=== PATIENT | male | born 1965 ===

== ENCOUNTER 2023-02-03 08:09 | Outpatient (REF) | payer MEDICAID, SELFPAY ==
--- NOTE | ~2023-02-03 | US_ITS ---
EXAMINATION: US COMPLETE ABDOMEN WITH LIVER ELASTOGRAPHY CLINICAL INFORMATION: Hepatitis C. COMPARISON: None available. TECHNIQUE: Real-time imaging of the abdominal viscera. Noninvasive ultrasound liver fibrosis assessment is performed using Adan ElastPQ point quantification shear wave elastography (2D-SWE) with a C5-2 MHz transducer. Multiple elastography samples are obtained. FINDINGS: PANCREAS: Largely obscured by overlapping bowel gas. ABDOMINAL AORTA: The proximal segment is are normal in caliber. The mid and distal segments are obscured by overlapping bowel gas. INFERIOR VENA CAVA: Visualized portions are normal. LIVER: Normal. The liver demonstrates normal size, contour and echogenicity. No focal lesion or intrahepatic biliary duct dilatation. The right lobe measures 18.8 cm in length. The left lobe measures 12.4 cm in length. Portal flow is towards the liver (hepatopetal). Shear wave liver elastography median stiffness is 1.59 m/s (reference: normal median stiffness is 1.3 m/s or less). IQR/median stiffness to assess sampling precision is 0.15 (reference: good quality data set is IQR/median stiffness of 0.15 or less). GALLBLADDER: There is mild layering biliary sludge. The gallbladder is physiologically distended without evidence of stones, polyps, wall thickening or pericholecystic fluid. COMMON BILE DUCT: Normal in caliber measuring 0.8 cm in diameter. RIGHT KIDNEY: Normal. No hydronephrosis. No renal calculi or focal parenchymal lesions. The kidney measures 11.5 cm in maximum dimension. LEFT KIDNEY: Normal. No hydronephrosis. No renal calculi or focal parenchymal lesions. The kidney measures 11.0 cm in maximum dimension. SPLEEN: Normal. The spleen measures 11.4 cm in maximum dimension. FREE FLUID: None. US/US abdomen comp w elastography IMPRESSION: 1. There is generalized increase in hepatic echotexture, consistent with fatty infiltration or hepatocellular disease. Please correlate clinically. No focal hepatic mass or intrahepatic biliary dilatation is seen. 2. Liver elastography: In the absence of other known clinical signs, measurements rule out compensated advanced chronic liver disease. If there are known clinical signs, further testing may be needed for confirmation. 3. There is mild hepatomegaly. 4. Technically limited ultrasound examination of the pancreas. REFERENCE: Society of Radiologists in Ultrasound Liver Stiffness Thresholds (2020): LIVER STIFFNESS THRESHOLDS: *Liver Stiffness equal or less than 1.3 m/s: High probability of being normal. *Liver Stiffness less than 1.7 m/s: In the absence of other known clinical signs, rules out compensated advanced chronic liver disease. *Liver Stiffness 1.7-2.1 m/s: Suggestive of compensated advanced chronic liver disease but need further test for confirmation. *Liver Stiffness over 2.1 m/s: Rules in compensated advanced chronic liver disease. *Liver Stiffness over 2.4 m/s: Suggestive of clinically significant portal hypertension. QUALITY OF DATA SET: *IQR/Median value equal or less than 0.15 implies a quality data set. *IQR/Median value over 0.15 implies a poor quality data set. SIGNIFICANT CHANGE FROM PRIOR EXAM: Significant change if liver stiffness measurement is 10% or greater from prior exam. OTHER CONSIDERATIONS: The stage of liver fibrosis may be overestimated in the setting of acute hepatitis, liver inflammation, elevated liver function tests, hepatic vascular congestion, obstructive cholestasis, non-fasting state, and infiltrative diseases such as amyloidosis and lymphoma. In some patients with NAFLD, the liver stiffness thresholds for compensated advanced chronic liver disease may be lower. In causes other than viral hepatitis and NAFLD, liver stiffness thresholds are not well established.
== END 2023-02-03 08:10 | disposition home or self-care (01) ==
LOC: HO.US 08:09
PROVIDERS: Visit Provider Family Medicine
DX: B19.20 Unspecified viral hepatitis C without hepatic coma (principal); R76.8 Other specified abnormal immunological findings in serum
CPT/HCPCS: 76705; 76981

== ENCOUNTER 2024-04-14 08:13 | Outpatient (AMB) | payer MEDICAID, SELFPAY ==
[2024-04-14 08:16] VITALS: BP 120/62; PULSE 62; O2SAT 98; BMI 25.1
--- NOTE | 2024-04-14 08:16 | MHC.OFFVIS ---
Vital Signs 04/14/24 08:16 Height 5 ft 9 in Weight 170 lb BMI 25.1 BP 120/62 Blood Pressure Location Lt brachial Pulse 62 Pulse Source Pulse Oximeter Pulse Oximetry (%) 98 Oxygen Delivery Method Room Air Intake Visit Reasons: Bechet's syndrome Intake Note: Patient presents as a new patient externally referred by PCP for Bechet's syndrome. 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 Patient states that he 1st starting ulcers as a child. These ulcers would be recurrent only involving his mouth. Areas affected include his lips, tongue, cheek, and even esophagus. While he had these ulcers he recalls having fevers. He denies ever having scrotal ulcers. Eye inflammation, vascular lesions such as phlebitis, aneurysms or thrombosis, skin lesions such as erythema nodosum or pyoderma gangrenosum like lesions. Does note that he gets a reaction when he gets blood drawn but is unable to typify this reaction. States that he got prednisone for a year and a half and this significantly improved his ulcers. No family history of any autoimmune disease. [facility] Medical History (Updated 04/14/24 @ 08:54 by Josefina Alan MD) Recurrent aphthous stomatitis Costochondritis Behcets syndrome Hepatitis B antibody positive Review of Systems Const Details: Review of Systems Constitutional: Denies fever, chills, weight loss ENT: Denies vision changes, eye pain or eye redness, dental caries, dry mouth GI: Denies nausea, vomiting, diarrhea, abdominal pain, change in BM Pulm: Denies SOB, ASENCIO, hemoptysis, wheezing Cards: Denies chest pain, palpitations Skin: Denies Raynaud's, rash, nail changes, photosensitivity, DIRECT SALES CONSULTANT: Denies headaches, weakness, paresthesias, recurrent falls MSK: as per HPI All other systems reviewed and are unremarkable except noted above Physical Exam Vital Signs: Last Vital Signs Pulse 62 04/14/24 08:16 BP 120/62 04/14/24 08:16 Pulse Ox 98 04/14/24 08:16 Oxygen Delivery Method Room Air 04/14/24 08:16 BMI result Body Mass Index 25.1 Physical Examination Patient well appearing and in no apparent painful distress Able to rise from chair without support. ?Gait normal. Constitutional Mucous membranes pink and moist patient alert and cooperative HEENT Conjunctiva and sclera clear. ?Pupils equal round and reactive to light. ?No lymphadenopathy. ?Poor dentition. Has a subcentimeter ulcer at the junction of the inner lower lip and the gingiva. No other ulcers noted. Respiratory System Normal respiratory effort and able to speak in complete sentences. ?Clear to auscultation bilaterally. ?No crackles, rales, rhonchi, wheezes heard. Cardiac System Regular rate and rhythm. ?S1 and S2 heard no murmurs. ?Radial pulses intact bilaterally MSK No deformity, swelling, abnormalities noted to bilateral hands. ?No evidence of synovitis. ?Able to move all joints with full range of motion, without limitation. Hands:.??Normal pain-free range of motion without tenderness, swelling, increased warmth or erythema. Able to make a full fist and has a good airbrush painter strength. Wrists: Normal pain-free range of motion without tenderness, swelling, increased warmth or erythema. Elbows: Full range of motion without pain. No tenderness, weakness, swelling, increased warmth or erythema. Shoulders: Full range of motion without pain. No tenderness, weakness, swelling, increased warmth or erythema. Hips: Full range of motion without pain. Hip bursa:.??No tenderness. Knees:.???Normal pain-free range of motion without tenderness, swelling, increased warmth or erythema.? Ankles:.??Normal pain-free range of motion without tenderness, swelling, increased warmth or erythema. Feet:.??Normal pain-free range of motion without tenderness, swelling, increased warmth or erythema. Tender points:??No tenderness to digital palpation at the occiput, trapezius, second rib, lateral epicondyle, knees, greater trochanter bilaterally, and left gluteal. Skin No rashes seen Results Reviewed Results Reviewed: No results available to review. Assessment & Plan Assessment & Plan (1) Recurrent aphthous stomatitis: Code(s): K12.0 - Recurrent oral aphthae Category: Medical Plan: #Recurrent aphthous stomatitis Patient with recurrent aphthous stomatitis. At this time unsure whether he has a true diagnosis of Behcet's disease. Especially since I am not seeing him at the time when his symptoms were most significant. Since they presented while he was a child they actually sound like PFAPA (periodic fever, aphthous stomatitis, pharyngitis, adenitis) episodes. I questioned the diagnosis of Behcet's because 1. He has never had any scrotal ulcerations. 2. His GI involvement has been mainly his esophagus however the GI involvement in Behcet's which is more common in [place] is usually characterized by mucosal ulcerations involving the ileum and the right side of the colon. 3. He has never had any eye involvement which actually occurs in up to 90% of min with Behcet's disease. The usually get an anterior or posterior uveitis within 4 years of diagnosis. 4. Ethnicity owens it actually uncommon for patient is to have Behcet's. It is usually related to the old silk root of [place] which extends from the [place] through [place] and into the [place] We will check inflammatory markers and CBC and CMP. We will also check HLA B 51 which is the marker associated with Behcet's disease. We will prescribe colchicine 0.6 mg daily for his recurrent aphthous stomatitis. To see again in 3 months Plan I spent 45 minutes reviewing the record and labs, seeing the patient, discussing the treatment plan and documenting in the medical record Orders: Orders Erythrocyte Sedimentation Rate Today K12.0 - Recurrent oral aphthae Complete Blood Count Auto Diff Today K12.0 - Recurrent oral aphthae Comprehensive Met. Panel Today K12.0 - Recurrent oral aphthae C Reactive Protein Today K12.0 - Recurrent oral aphthae HLA B51 Behcet's Disease Today K12.0 - Recurrent oral aphthae Medications: New colchicine 0.6 mg PO DAILY 90 days 90 tabs 0RF K12.0 - Recurrent oral aphthae Coding Level of Care Code New Pt Level 4 (51829) Diagnoses Recurrent aphthous stomatitis K12.0
== END 2024-04-14 08:59 | disposition home or self-care (01) ==
PROVIDERS: PCP Nurse Practitioner; Visit Provider Student in an Organized Health Care Education/Training Program
DX: K12.0 Recurrent oral aphthae (principal)
CPT/HCPCS: 99204

== ENCOUNTER 2024-05-23 09:53 | Outpatient (REF) | payer MEDICAID, SELFPAY | END 2024-05-23 09:54 | disposition home or self-care (01) | LOC: HO.US 09:53 | PROVIDERS: PCP Internal Medicine; Visit Provider Internal Medicine | DX: R76.8 Other specified abnormal immunological findings in serum (principal) | CPT/HCPCS: 76700; 76981 ==

== ENCOUNTER → 2024-05-23 09:55 | Outpatient (BNV) | payer MEDICAID, SELFPAY | PROVIDERS: PCP Internal Medicine; Visit Provider Radiology Diagnostic Radiology | DX: R76.8 Other specified abnormal immunological findings in serum (principal) | CPT/HCPCS: 76700 ==

== ENCOUNTER 2024-10-27 09:59 | Outpatient (REF) | payer MEDICAID, SELFPAY ==
[2024-10-27 11:42] LABS: MANUAL DIFF FLAG NO
[2024-10-27 11:54] LABS: Basophils Percent Auto 0.4 % (0-2); Eosinophils Absolute Auto 0.1 X10*3/uL (0.0-0.4); Eosinophils Percent Auto 1.1 % (0-4); Imm Gran Abs Auto 0.01 X10*3/uL (0.00-0.03); Imm Gran Pct Auto 0.2 % (0.0-0.4); Lymphocytes Absolute Auto 1.5 X10*3/uL (1.2-4.9); Mean Corpuscular HGB Conc 33.3 g/dl (31.0-36.0); Mean Corpuscular Volume 87.1 fL (80.0-98.0); Mean Platelet Volume 11.2 fL (9.4-12.4); Monocytes Absolute Auto 0.5 X10*3/uL (0.1-1.2); Monocytes Percent Auto 8.7 % (2-11); Neutrophils Absolute Auto 3.5 x10*3/uL (2.0-8.3); Neutrophils Percent Auto 62.6 % (45-73); Platelet Count 210 X10*3/uL (160-400); Red Blood Count 4.48 X10*6/uL (4.60-5.80); Red Cell Distribution Width 13.1 % (11.0-16.0); White Blood Count 5.5 X10*3/uL (4.8-10.8)
--- OUTSIDE RECORDS SUMMARY | 2024-10-27 12:23 | XMS_ITS ---
Author Organization [facility] Address [address] [place], [place] [id number] Care Team Providers Care Laundry Operator Name Role Phone Mail, Pickup Primary Care Provider Gita Mittal Unavailable Encounters Encounter Location Date Provider Diagnosis [facility] [address] [place] [phone] 02/25/2024 Gita Kwong Plan Of Treatment No Information Progress Notes * LIM JuanbonillaoDOB: 5 (58 yo M)Acc No.[id number]:02/25/2024 Case Management Patient:?Ferny Lim Provider:?Gita Kwong :1965???Age:58 Y???Sex:Male Reji e:02/25/2024 Address:[address], [facility] Pcp:Pickup Mail Subjective: * Chief Complaints: * ??? * HPI: ???Social Service:?Referral Source?returning client.?Interpretation for medical provider?housing, Mail orange picker, Benefits.? Client came in to retrieve their mail client was assisted in filling out documents and faxing to DTA office.Client still reports to need for housing search and will make an appointment to continue filling out applications for low income housing. * Medical History:? Objective: Assessment: Plan: * Treatment: * Images: Billing Information: * Visit Code:? * Procedure Codes:? Care Plan Details* * Sign off status: Completed true * Provider:?Gita Kwong Date:? Generated for Amelie hassan/Joyce/Brennen on:?10/27/2024 12:22 PM EDT History and Physical Notes * HPI (History of Present Illness) Category Sub-Category Detail Notes Social Service Referral Source returning client Interpretation for medical provider hous ing, Mail orange picker, Benefits
--- OUTSIDE RECORDS SUMMARY | 2024-10-27 12:23 | XMS_ITS | Encounter Summary ---
Author Organization [employer] Address [address] [facility] 7t [place] [address] Care Team Providers Care Hotel Casino Floorperson Name Role Phone Vic Benoit MD Primary Care Prov ider Encounter Details Date Type Department Care Team (Late st Contact Info) Description 10/27/2024 Orders Only GENERIC EXTERNAL DATA DEPARTMENT Provider, Generic External Data Social History Tobacco Use Types Packs/Day Years [...] AM EDT documented as of this encounter Plan of Treatment Upcoming Encounters Date Type Department Care Team (Late st Contact Info) Description 12/21/2024 10:15 AM EDT Telemedicine [facility] [address] [place], [place] [phone] Vic Benoit MD [address] [place] [address] documented as of this encounter Procedures Procedure Name Priority Date/Time Associated Diagnosis Comments CBC WITH AUTO DIFFERENTIAL Routine 10/27/2024 11:40 AM EDT documented in this encounter Results * (ABNORMAL) CBC auto differential (10/27/2024 11:40 AM EDT) White Blood Count 5.5 4.8 - 10.8 X10*3/uL [facility] Red Blood Count 4.48(L) 4.60 - 5.80 X10*6/uL [facility] Hemoglobin 13.0(L) 14.0 - 18.0 g/dl [facility] Hematocrit 39.0(L) 42.0 - 52.0 % [facility] Mean Corpuscular Volume 87.1 80.0 - 98.0 fL [facility] Mean Corpuscular Hemoglobin 29.0 27.0 - 33.0 pg [facility] Mean Corpuscular HGB Conc 33.3 31.0 - 36.0 g/dl [facility] Red Cell Distribution Width 13.1 11.0 - 16.0 % [facility] Platelet Count 210 160 - 400 X10*3/uL [facility] Mean Platelet Volume 11.2 9.4 - 12.4 fL [facility] Neutrophils Percent Auto 62.6 45 - 73 % [facility] Imm Gran Pct Auto 0.2 0.0 - 0.4 % [facility] Lymphocytes Percent Auto 27.0 20 - 40 % [facility] Monocytes Percent Auto 8.7 2 - 11 % [facility] Eosinophils Percent Auto 1.1 0 - 4 % [facility] Basophils Percent Auto 0.4 0 - 2 % [facility] NRBC Pct Auto 0.0 0.0 - 0.2 /100WBC [facility] Neutrophils Absolute Auto 3.5 2.0 - 8.3 x10*3/uL [facility] Imm Gran Abs Auto 0.01 0.00 - 0.03 X10*3/uL [facility] Lymphocytes Absolute Auto 1.5 1.2 - 4.9 X10*3/uL [facility] Monocytes Absolute Auto 0.5 0.1 - 1.2 X10*3/uL [facility] Eosinophils Absolute Auto 0.1 0.0 - 0.4 X10*3/uL [facility] Basophils Absolute Auto 0.0 0.0 - 0.2 X10*3/uL [facility] NRBC Abs Auto 0.000 0.0 - 0.012 X10*3/uL [facility] 10/27/2024 11:4 0 AM EDT 10/27/2024 11:40 AM EDT us Generic External Data Provider LAB BLOOD ORDERAB LES Final Result [facility] [address] [place] [address] [phone] documented in this encounter Visit Diagnoses Not on filedocumented in this encounter Additional Health Concerns Assessment Noted Time PHQ-9 Depression Total Score: 0 09/28/19 25 9:13 AM EDT documented as of this encounter Care Teams Hotel [employer] Floorperson Relationship Specialty Start Date End Date Vic Benoit MD [address] [place] [address] PCP - General Internal Medicine 11/21/19 documented as of this encounter
--- OUTSIDE RECORDS SUMMARY | 2024-10-27 12:23 | XMS_ITS | Encounter Summary ---
Author Organization [employer] Address [address] [facility] [address] [place] [address] Care Team Providers Care Clinical Safety Specialist Name Role Phone Vic Benoit MD Primary Care Prov ider Reason for Visit * Reason Onset Date Comments Nurse Triage 10/18/2023 Encounter Details Date Type Department Care Team ([facility] st Contact Info) Description 10/18/2023 Telephone [facility] [address] [place] [address] Vic Benoit MD [address] [place] [address] Nurse Triage Social History Tobacco Use Types Packs/Day Years Used Date Smoking Tobacco: Some Days Cigarettes Passive Smoke Exposure: Current Smokeless Tobacco: Never Depression Answer Date Recorded Patient Health Questionnaire-9 Score 0 10/13/2022 Housing Stability Answer Date Recorded What is your housing situation today? I do not have housing (Staying with others, in a hotel, in a retirement, living outside on the street, on a [...] Info) Description 12/21/2024 10:15 AM EDT Telemedicine [facility] [address] [place] [address] Vic Benoit MD [address] [place] [address] documented as of this encounter Visit Diagnoses Not on filedocumented in this encounter Additional Health Concerns Assessment Noted Time PHQ-9 Depression Total Score: 0 10/14/19 23 10:24 AM EDT documented as of this encounter Care Teams Clinical Safety Specialist Relationship Specialty Start Date End Date Vic Benoit MD [address] [place] [address] PCP - General Internal Medicine 11/21/19 documented as of this encounter
--- OUTSIDE RECORDS SUMMARY | 2024-10-27 12:23 | XMS_ITS ---
Author Organization [facility] Address [address], [place] [id number] Care Team Providers Care Business Technology Teacher Name Role Phone Mail, Pickup Primary Care Provider Gita Mittal Unavailable [phone] Encounters Encounter Location Date Provider Diagnosis [facility] [address] [place] [phone] 02/11/2024 Gita Kwong Plan Of Treatment No Information Progress Notes * Oswaldo LIMoDOB: 5 (59 yo M)Acc No.[id number]:02/11/2024 Case Management Patient:?Ferny LIM Provider:?Gita Kwong :1965???Age:58 Y???Sex:Male Reji e:02/11/2024 Address:[facility] [address] Pcp:Pickup Mail Subjective: * Chief Complaints: * ??? * Medical History:? Objective: Assessment: Plan: * Treatment: * Images: Billing Information: * Visit Code:? * Procedure Codes:? Care Plan Details* * Electronic signature of Koko Kwong on 10/27/2024 at 12:23 PM EDT Sign off status: Pending * Provider:Serenity Kwong Date:? Generated for Amelie hassan/Joyce/eTransmitting on:?10/27/2024 12:23 PM EDT
--- OUTSIDE RECORDS SUMMARY | 2024-10-27 12:23 | XMS_ITS | Clinical Summary ---
Author Organization [employer] Address [address] [place] [address] [address] [place] [address] Care Team Providers Care Quality Process Lead Name Role Phone Vic Benoit MD Primary Care Prov ider Allergies No known active allergies Medications methadone (Dolophine) 5 MG/5ML solution Take 125 mL by mouth in the morning. [facility] [place] Active cloNIDine (Catapres) 0.1 MG tablet Take [...] Encounters Date Type Department Care Team Description 10/27/2024 Orders Only GENERIC EXTERNAL DATA DEPARTMENT Provider, Generic External Data 09/27/2024 9:30 AM EDT Telemedicine [facility] [address] [place] [address] Vic Benoit MD Screening for colon cancer (Primary Dx); Primary hypertension; Low libido 09/27/2024 Patient Outreach [facility] [address] [place] [address] Vic Benoit MD Care Coordination 09/27/2024 Travel 09/26/2024 Telephone [facility] [address] [place] [address] Vic Benoit MD chart prep 09/18/2024 Telephone [facility] [address] [place] [address] Vic Benoit MD 09/08/2024 Patient Outreach [facility] [address] [place] [address] Vic Benoit MD Care Coordination (Outreach) 09/08/2024 Population Health Risk Score [facility] () Department [address] [place] [phone] Provider, Population Health Generic 09/01/2024 Patient Outreach [facility] [address] [place] [address] Vic Benoit MD Care Coordination (Outreach) 08/24/[address] [address] Hilario Caruso, Jairo 08/24/2024 Patient Outreach [facility] [address] [place] [address] Vic Benoit MD Care Coordination (Outreach) 08/24/[address] [address] Vic Benoit MD ER Follow-up 08/07/[address] [address] Yanna Leahy, RN Hep C Start Treatment from Last 3 [...] Info) Description 12/21/2024 10:15 AM EDT Telemedicine [facility] [address], [place] [phone] Vic Benoit MD [address] [place], [place] [phone] Health Maintenance Due Date Last Done Comments [...] AUTO DIFFERENTIAL Routine 10/27/2024 11:40 AM EDT HIV 1/2 ANTIGEN/ANTIBODY, FOURTH GENERATION W/RFL Routine 04/14/2024 9:28 AM EDT Hepatitis C antibody positive in blood LIPID PANEL, STANDARD Routine 10/13/2022 11:15 AM EDT Bilateral lower extremity edema from Last 3 Months or Most Recently Relevant to Health Maintenance Results * (ABNORMAL) CBC auto differential (10/27/2024 11:40 AM EDT) White Blood Count 5.5 4.8 - 10.8 X10*3/uL [facility] Red Blood Count 4.48(L) 4.60 - 5.80 X10*6/uL [facility] Hemoglobin 13.0(L) 14.0 - 18.0 g/dl [facility] Hematocrit 39.0(L) 42.0 - 52.0 % [facility] Mean Corpuscular Volume 87.1 80.0 - 98.0 fL [facility] Mean Corpuscular Hemoglobin 29.0 27.0 - 33.0 pg [facility] Mean Corpuscular HGB Conc 33.3 31.0 - 36.0 g/dl [facility] Red Cell Distribution Width 13.1 11.0 - 16.0 % [facility] Platelet Count 210 160 - 400 X10*3/uL [facility] Mean Platelet Volume 11.2 9.4 - 12.4 fL [facility] Neutrophils Percent Auto 62.6 45 - 73 % [facility] Imm Gran Pct Auto 0.2 0.0 - 0.4 % [facility] Lymphocytes Percent Auto 27.0 20 - 40 % [facility] Monocytes Percent Auto 8.7 2 - 11 % [facility] Eosinophils Percent Auto 1.1 0 - 4 % [facility] Basophils Percent Auto 0.4 0 - 2 % [facility] NRBC Pct Auto 0.0 0.0 - 0.2 /100WBC [facility] Neutrophils Absolute Auto 3.5 2.0 - 8.3 x10*3/uL [facility] Imm Gran Abs Auto 0.01 0.00 - 0.03 X10*3/uL [facility] Lymphocytes Absolute Auto 1.5 1.2 - 4.9 X10*3/uL [facility] Monocytes Absolute Auto 0.5 0.1 - 1.2 X10*3/uL [facility] Eosinophils Absolute Auto 0.1 0.0 - 0.4 X10*3/uL [facility] Basophils Absolute Auto 0.0 0.0 - 0.2 X10*3/uL [facility] NRBC Abs Auto 0.000 0.0 - 0.012 X10*3/uL [facility] 10/27/2024 11:4 0 AM EDT 10/27/2024 11:40 AM EDT us Generic External Data Provider LAB BLOOD ORDERAB LES Final Result [facility] [address] [place] [phone] * HIV-1/2 Antigen and Antibodies, Fourth Generation, with Reflexes (04/14/2024 9:28 AM EDT) Pathologist [facility] HIV AB/AG Nonreactive Nonreactive [facility] Comment:HIV-1 p24 Ag and/or HIV-1/HIV-2 Ab not detected.A test result that is nonreactive does not exclude thepossibility of exposure to or infection with HIV-1 and/orHIV-2. Nonreactive results in this assay for individualswith prior exposure to HIV-1 and/or HIV-2 may be due toantigen and antibody levels that are below the limit ofdetection of this assay.The [employer] HIV Ag/Ab Combo assay result andsupplemental assay results should be interpreted inconjunction with the patient's clinical presentation,history and other laboratory results. If the results areinconsistent with clinical evidence, additional testing issuggested to confirm the result. 04/14/2024 9:28 AM EDT 04/14/2024 9:38 AM EDT us Vic Bradley MD LAB BLOOD ORDERABL ES Final Result [facility] [address] [place] [phone] * Lipid Panel, Standard (10/13/2022 11:15 AM EDT) Pathologist [facility] Cholesterol, Total 141 <200 mg/dL [facility] HDL Cholesterol 55 > OR = 40 mg/dL [facility] Triglycerides 45 <150 mg/dL [facility] LDL Cholesterol 73 mg/dL (calc) [facility] Comment: Reference range: <100 Desirable range <100 mg/dL for primary prevention; ?? <70 mg/dL for patients with CHD or diabetic patients with > or = 2 CHD risk factors. LDL-C is now calculated using the Samuel calculation, which is a validated novel method providing better accuracy than the Friedewald equation in the estimation of LDL-C. Carlos CHARLES et al. TRUMAN. 2013;310(19): 2950-1513 (http://education.rankur.Intivix/faq/HBY067) Chol/HDLC Ratio 2.6 <5.0 (calc) [facility] Non-HDL Cholesterol 86 <130 mg/dL (calc) [facility] Comment: For patients with diabetes plus 1 major ASCVD risk factor, treating to a non-HDL-C goal of <100 mg/dL (LDL-C of <70 mg/dL) is considered a therapeutic option. Blood Venous blood specimen / Unknown 10/13/2022 11:15 AM EDT 10/13/2022 11:17 AM EDT Narrative [facility] - 10/16/2022 1:32 PM EDT FASTING:NO FASTING: NO Douglas Galarza [facility] LAB BLOOD ORDERABLES Final Res ult [facility] [address], [place] [address] [facility] [address] [place] [address] from Last 3 Months or Most Recently Relevant to Health Maintenance Insurance [employer] C3 Care Teams Quality Process Lead Relationship Specialty Start Date End Date Vic Benoit MD [address] [place] [phone] PCP - General Internal Medicine 11/21/19
--- OUTSIDE RECORDS SUMMARY | 2024-10-27 12:23 | XMS_ITS | Continuity of Care Document ---
Author Organization [facility] Address [address] [place] [address] Phone Care Team Providers Care Administrative Volunteer Name Role Phone Unavailable Unavailable Unavailable Medications [...] Minutes 3 Psych Dx Eval OFFICE/OUTPATIENT VISIT, [facility] Advance Directives Directive Yes / No Effective Date File Name No Information Encounters Encounter Description Practice Location Reason(s) For Visit Diagnoses Date Provider Providers Copied on Encounter [facility], [address] [place] [address], [address], tel:[phone] [facility] Behavioral Health Discharge Planning (chief complaint) ALCOHOL DEPENDENCEOpi oid type dependence, in remission 4 No Information GROUP PSYCHOTHERAPY [facility], [address] [place] [address], [address], tel:[phone] [facility] Behavior[facility] Health Opioid type dependence, in remission 4 No Information GROUP PSYCHOTHERAPY [facility], [address] [place], [address], [place] tel:[phone] [facility] Behavior[facility] Health Opioid type dependence, in remission 4 No Information [facility], [address] [place], [address], [place] tel:[phone] [facility] Behavioral Health No Information 4 No Information OFFICE/OUTPATI ENT VISIT, [facility], [address] [place] [address], [address], tel:[phone] [facility] Behavior[facility] Health Opioid type dependence, in remissionOpio id type dependence, unspecified use 201 4 No Information GROUP PSYCHOTHERAPY [facility], [address] [place], [address], [place] tel:[phone] [facility] Behavioral Health Opioid type dependence, unspecified use October-3 0-201 4 No Information GROUP PSYCHOTHERAPY [facility], [address] [place], [address], [place] tel:[phone] [facility] Behavioral Health Opioid type dependence, in remission October- 6- 4 No Information Ps[facility] And Family 30 Minutes [facility], [address] [place], [address], [place] tel:[phone] [facility] Behavioral Health Opioid type dependence, in remission October- 3- 4 No Information GROUP PSYCHOTHERAPY [facility], [address] [place], [address], [place] tel:[phone] [facility] Behavioral Health Opioid type dependence, unspecified use Sep-2 5-201 4 No Information GROUP PSYCHOTHERAPY [facility], [address] [place], [address], [place] tel:[phone] [facility] Behavioral Health Opioid type dependence, unspecified use Apr-1 1-201 4 No Information [facility] And Family 30 Minutes [facility], [place], [address], [place] tel:[phone] [facility] Behavioral Health Opioid type dependence, unspecified use Mar-2 4-201 4 No Information GROUP PSYCHOTHERAPY [facility], [place], [address], [place] tel:[phone] [facility] Behavioral Health Opioid type dependence, unspecified use Mar-2 1-201 4 No Information OFFICE/OUTPATI ENT VISIT, EST [facility], [address] [place], [address], [place] tel:[phone] [facility] Behavioral Health substance abuse (chief complaint) Opioid type dependence, in remission Aug-1 0-201 4 No Information GROUP PSYCHOTHERAPY [facility], [place], [address], [place] tel:[phone] [facility] Behavioral Health Opioid type dependence, unspecified use Mar-0 7-201 4 No Information [facility], [place], [address], [place] tel:[phone] [facility] Behavioral Health DepressionOpi oid type dependence, unspecified useMajor depressive affective disorder, recurrent episode, unspecified degree 4 Case Management [facility]. . PsyTXPT And Family 30 Minutes [facility], [address] [place], [address], [place] tel:[phone] [facility] Behavioral Health No Information 4 No Information GROUP PSYCHOTHERAPY [facility], [address] [place], [address], [place] tel:[phone] [facility] Behavioral Health Opioid type dependence, unspecified use 4 No Information GROUP PSYCHOTHERAPY [facility], [address] [place], [place], [facility], [place] tel:[phone] [facility] Behavioral Health Opioid type dependence, unspecified use 4 No Information OFFICE/OUTPATI ENT VISIT, [facility], [address] [place], [place], [facility], [place] tel:[phone] [facility] Behavioral Health substance abuse (chief complaint) Opioid type dependence, unspecified use 4 No Information PsyTXPT And Family 30 Minutes [facility], [address] [place], [address], [place] tel:[phone] [facility] Behavioral Health No Information 4 No Information GROUP PSYCHOTHERAPY [facility], [address] [place] [address], [facility], [place] tel:[phone] [facility] Behavioral Health Opioid type dependence, unspecified use 3 No Information [facility], [address] [place] [address], [facility], [place] tel:[phone] [facility] Behavioral Health Major depressive affective disorder, recurrent episode, unspecified degreeOpioid type dependence, unspecified useDepression 3 Case Management [facility]. . GROUP PSYCHOTHERAPY [facility], [address] [place] [address], [facility], [place] tel:[phone] [facility] Behavioral Health DepressionOpi oid type dependence, unspecified useMajor depressive affective disorder, recurrent episode, unspecified degree 3 No Information OFFICE/OUTPATI ENT VISIT, [facility], [address] [place], [address], [place] tel:[phone] [facility] Behavioral Health substance abuse (chief complaint)d epression (chief complaint) Opioid type dependence, unspecified useDepression 3 No Information PsyTXPT And Family 30 Minutes [facility], [address] [place], [address], [place] tel:[phone] [facility] Behavioral Health No Information 0 3 No Information GROUP PSYCHOTHERAPY [facility], [address] [place], [address], [place] tel:[phone] [facility] Behavioral Health Opioid type dependence, unspecified use 0 3 No Information [facility], [address] [place], [address], [place] tel:[phone] [facility] Behavioral Health Opioid type dependence, unspecified use 3 No Information PsyTXPT And Family 30 Minutes [facility], [address] [place], [address], [place] tel:[phone] [facility] Behavioral Health No Information 2 3 No Information GROUP PSYCHOTHERAPY [facility], [address] [place], [address], [place] tel:[phone] [facility] Behavioral Health Opioid type dependence, unspecified use 3 No Information [facility], [address] [place], [address], [place] tel:[phone] [facility] Behavioral Health No Information 3 No Information [facility], [address] [place], [address], [place] tel:[phone] [facility] Behavioral Health Opioid type dependence, unspecified use 3 No Information PsyTXPT And Family 30 Minutes [facility], [address] [place], [address], [place] tel:[phone] [facility] Behavioral Health No Information Mar-0 3 No Information [facility], [address] [place], [address], [place] tel:[phone] [facility] Behavioral Health Opioid type dependence, unspecified use Oct-0 4-201 3 No Information Psych Diag Eval W/Med Serv [facility], [address] [place] [address], [address], [place] tel:[phone] [facility] Behavioral Health depression (chief complaint) DepressionOpi oid type dependence, unspecified use 3 No Information GROUP PSYCHOTHERAPY [facility], [address] [place] [address], [address], [place] tel:[phone] [facility] Behavioral Health Opioid type dependence, unspecified use 3 No Information PsyTXPT And Family 30 Minutes [facility], [address] [place] [address], [address], [place] tel:[phone] [facility] Behavioral Health No Information 3 No Information GROUP PSYCHOTHERAPY [facility], [address] [place] [address], [address], [place] tel:[phone] [facility] Behavioral Health Opioid type dependence, unspecified use 3 No Information PsyTXPT And Family 30 Minutes [facility], [address] [place] [address], [address], [place] tel:[phone] [facility] Behavioral Health No Information 3 No Information PsyTXPT And Family 30 Minutes [facility], [address] [place] [address], [address], [place] tel:[phone] [facility] Behavior[facility] No Information 3 No Information Psych Dx Eval [facility], [address] [place] [address], [address], [place] tel:[phone] [facility] Behavioral Health depression (chief complaint)s ubstance abuse (chief complaint) Major depressive affective disorder, recurrent episode, unspecified degreeOpioid type dependence, unspecified use 3 No Information OFFICE/OUTPATI ENT VISIT, [facility], [address] [place] [address], [address], [place] tel:[phone] [facility] Adult Medicine Beto Med refill (chief complaint) Hypertension, BenignDepress ion 3 No Information Family History Family Member Type Diagnosis Age At Onset No Information Payers Payer name Insurance type Covered alliance party ID Authoriza titoni(s) ETELVINA Janice White [id number] Social History Type Description Quantity Date Captured [...] 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 substance abuse He reported that he was clean and sober and very busy with his work. 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 Clark) at [facility] for tx of depression. He has been on Celexa for over a year and has found this very helpful for his depression and anxiety symptoms. One prior psych admission in [place] for depression after he cut himself.. substance [...] by mental health (clinician and Psych) at [facility] as well. Plans to transfer care to [facility] due to recent move. Increased BP noted. [...]
--- OUTSIDE RECORDS SUMMARY | 2024-10-27 12:23 | XMS_ITS ---
Author Organization [facility] Address [address] [place], [place] [id number] Care Team Providers Care Cardiac Nurse Name Role Phone Mail, Pickup Primary Care Provider Unavailtim e Gita Kwong Unavailable Encounters Encounter Location Date Provider Diagnosis [facility] [address] [place] [phone] 02/22/2024 Gita Kwong Plan Of Treatment No Information Progress Notes * LIMOswaldo WRIGHToDOB: 5 (58 yo M)Acc No.[id number]:02/22/2024 Case Management Patient:?Ferny Lim Provider:?Gita Kwong :1965???Age:58 Y???Sex:Male Reji e:02/22/2024 Address:[address], [facility] Pcp:Pickup Mail Subjective: * Chief Complaints: * ??? 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 Client came in and received mail from [place] [facility] the worker Mrs Baca was called [phone] to ask for more time to get in the requested information a message was left to return the call today was the last day to respond also called clients DTA worker Keagan Sanchez @ [phone].Client reports going to [facility] and their Dr Rob.Client referred to their doctor to get paperwork filled out and given an appointment for Wednesday to follow up. * Medical History:? Objective: Assessment: Plan: * Treatment: * Images: Billing Information: * Visit Code:? * Procedure Codes:? Care Plan Details* * Sign off status: Completed true * Provider:?Gita Kwong Date:? 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
[2024-10-27 12:24] LABS: Alanine Aminotransferase 69 U/L (0-40); Albumin Level 4.3 g/dL (3.5-5.0); Alkaline Phosphatase 119 U/L (39-117); Anion Gap 11 (12-20); Aspartate Amino Transferase 51 U/L (5-37); Bilirubin Total 0.4 mg/dL (0.0-1.0); Blood Urea Nitrogen 11 mg/dL (9-16); C Reactive Protein 1.35 mg/dL (< or = 0.50); Calcium 9.6 mg/dL (8.4-10.2); Carbon Dioxide 32 mmol/L (22-29); Chloride 103 mmol/L (96-108); Estimated Glomerular Filt Rate > 60; Glucose Random 79 mg/dL (60-115); Potassium 4.2 mmol/L (3.3-5.1); Sodium 142 mmol/L (135-145); Total Protein 8.6 g/dL (6.5-8.0)
[2024-10-27 12:33] LABS: Erythrocyte Sedimentation Rate 65 MM/HR (0-15)
[2024-10-27 12:49] LABS: HBS Num1 27.33 mIU/mL (0-7.99); HBc Num1 5.58 S/CO (0.00-0.79); HBsAGNum1 0.39 S/CO (0.00-0.99); Hepatitis A Antibody IgM 0.21 Index (0-0.79); Hepatitis B Surface Antigen Negative (Negative); ~HepC Num1 13.21 S/CO (0.00-0.79); ~Hepatitis A Antibody IgM Nonreactive (Nonreactive); ~Hepatitis B Surface Antibody REACTIVE (Nonreactive); ~Hepatitis C Antibody Reactive (Nonreactive)
[2024-10-27 13:47] LABS: HBc Num2 5.33 S/CO; Hepatitis B Core Antibody Reactive (Nonreactive)
[2024-10-28 11:18] LABS: HCV Log PCR <1.18 NOT DETECTED Log IU/mL (NOT DETECTED); HepC Viral Load <15 NOT DETECTED IU/mL (NOT DETECTED)
[2024-10-28 13:03] LABS: Hepatitis B Viral DNA Qn - cp NOT DETECTED Log IU/mL (NOT DETECTED); Hepatitis B Viral DNA Qn-IU/mL NOT DETECTED (NOT DETECTED)
[2024-11-02 16:24] LABS: Testosterone, Free 21.1 pg/mL (35.0-155.0); Testosterone, Total 200 ng/dL (250-1100)
== END 2024-10-27 10:00 | disposition home or self-care (01) ==
LOC: HO.LAB 09:59
PROVIDERS: PCP Internal Medicine; Visit Provider Student in an Organized Health Care Education/Training Program
DX: K12.0 Recurrent oral aphthae (principal); R68.82 Decreased libido; Z79.899 Other long term (current) drug therapy
CPT/HCPCS: 36415; 80053; 84402; 84403; 85025; 85652; 86140; 86704; 86706; 86709; 86803; 87340; 87517; 87522; 99212

== ENCOUNTER 2024-10-27 09:59 | Outpatient (AMB) | payer MEDICAID, SELFPAY ==
--- NOTE | 2024-10-27 10:33 | MHC.OFFVIS ---
Vital Signs 10/27/24 10:47 Height 5 ft 9 in Weight 189 lb 9.561 oz BMI 28.0 BP 134/80 Blood Pressure Location Lt brachial Position Sitting Respiration 18 Pulse 57 Pulse Source Pulse Oximeter Pulse Oximetry (%) 97 Oxygen Delivery Method Room Air Intake Visit Reasons: follow up Intake Note: Patient presents for follow up. 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 At that time he was establishing care for the management of Behcet's disease. It was unclear whether or not he truly had patient's but he was started on colchicine to help with his recurrent aphthous stomatitis Today, He has been tolerating the colchicine and has been doing well Improved ulcers Currently undergoing treatment for his Hep C Rheumatologic History: Presented to Rheumatology carrying a diagnosis of Behcet's. HLA B 51 was negative and there was no other finding to cooperate a diagnosis of Behcet's disease. But given his recurrent aphthous stomatitis he was given colchicine 0.6 mg daily Initial history: Patient states that he 1st starting ulcers as a child. These ulcers would be recurrent only involving his mouth. Areas affected include his lips, tongue, cheek, and even esophagus. While he had these ulcers he recalls having fevers. He denies ever having scrotal ulcers. Eye inflammation, vascular lesions such as phlebitis, aneurysms or thrombosis, skin lesions such as erythema nodosum or pyoderma gangrenosum like lesions. Does note that he gets a reaction when he gets blood drawn but is unable to typify this reaction. States that he got prednisone for a year and a half and this significantly improved his ulcers. No family history of any autoimmune disease. Current Rheumatology Medication(s): colchicine 0.6mg daily PFSH Medical History (System 10/06/24 @ 14:04 by Martha Harry) Recurrent aphthous stomatitis Costochondritis Behcets syndrome Hepatitis B antibody positive Surgical History (Updated 10/27/24 @ 10:44 by LATOYA Murray) History of cholecystectomy Family History (Updated 10/27/24 @ 10:45 by LATOYA Murray) Father Diabetes Mother Hypertension Social History (Updated 10/27/24 @ 10:47 by LATOYA Murray) Household Members: None Housing: Other Alcohol intake: former Patient Tobacco Use Status: Current someday Tobacco user Tobacco use type: Cigarette Cigarettes Per Day: 2 Years Smoked: 2 Review of Systems Const Details: Review of Systems Constitutional: Denies fever, chills, weight loss ENT: Denies vision changes, eye pain or eye redness, dental caries, dry mouth GI: Denies nausea, vomiting, diarrhea, abdominal pain, change in BM Pulm: Denies SOB, ASENCIO, hemoptysis, wheezing Cards: Denies chest pain, palpitations Skin: Denies Raynaud's, rash, nail changes, photosensitivity, SEAMLESS TUBE ROLLER: Denies headaches, weakness, paresthesias, recurrent falls MSK: as per HPI All other systems reviewed and are unremarkable except noted above Physical Exam Vital Signs: Last Vital Signs Pulse 57 10/27/24 10:47 Resp 18 10/27/24 10:47 BP 134/80 10/27/24 10:47 Pulse Ox 97 10/27/24 10:47 Oxygen Delivery Method Room Air 10/27/24 10:47 BMI result Body Mass Index 28.0 Vital signs reviewed Physical Examination Patient well appearing and in no apparent painful distress Able to rise from chair without support. ?Gait normal. Constitutional Mucous membranes pink and moist patient alert and cooperative HEENT Conjunctiva and sclera clear. ?Pupils equal round and reactive to light. ?No lymphadenopathy. ?Dentures. No ulcers noted Respiratory System Normal respiratory effort and able to speak in complete sentences. ?Clear to auscultation bilaterally. ?No crackles, rales, rhonchi, wheezes heard. Cardiac System Regular rate and rhythm. ?S1 and S2 heard no murmurs. ?Radial pulses intact bilaterally MSK No deformity, swelling, abnormalities noted to bilateral hands. ?No evidence of synovitis. ?Able to move all joints with full range of motion, without limitation. Hands:.??Normal pain-free range of motion without tenderness, swelling, increased warmth or erythema. Able to make a full fist and has a good shaper operator strength. Wrists: Normal pain-free range of motion without tenderness, swelling, increased warmth or erythema. Elbows: Full range of motion without pain. No tenderness, weakness, swelling, increased warmth or erythema. Shoulders: Full range of motion without pain. No tenderness, weakness, swelling, increased warmth or erythema. Knees:.???Normal pain-free range of motion without tenderness, swelling, increased warmth or erythema.? Ankles:.??Normal pain-free range of motion without tenderness, swelling, increased warmth or erythema. Feet:.??Normal pain-free range of motion without tenderness, swelling, increased warmth or erythema. Tender points:??No tenderness to digital palpation at the occiput, trapezius, second rib, lateral epicondyle, knees, greater trochanter bilaterally, and left gluteal. Skin No rashes seen Results Reviewed Results Reviewed: Laboratory Tests 04/14/24 04/14/24 09:28 Unknown WBC 5.1 RBC 4.71 Hgb 13.5 L Hct 40.3 L Plt Count 208 ESR 39 H Sodium 141 Potassium 4.0 Chloride 103 Carbon Dioxide 28 BUN 15 Creatinine 0.69 AST 28 ALT 29 Alkaline Phosphatase 82 C-Reactive Protein 1.16 H Total Protein 8.6 H Laboratory Tests 04/14/24 09:28 HLA-B51 negative Assessment & Plan Assessment & Plan (1) Recurrent aphthous stomatitis: Code(s): K12.0 - Recurrent oral aphthae Category: Medical Plan: #Recurrent aphthous stomatitis Patient with recurrent aphthous stomatitis. At this time unsure whether he has a true diagnosis of Behcet's disease. Responding well to colchicine Had to decrease the dose of colchicine while he was undergoing treatment for hep C He is in the final stages of treatment We will increase the dose to 0.6mg daily and monitor Plan - Increase colchicine to 0.6ng daily - Labs today: CBC, CMP, ESR, CRP, hepatitis panel, HCV viral load, hep B viral load - RTC 4 months (2) On colchicine therapy: Code(s): Z79.899 - Other long term care social worker (current) drug therapy Plan: #Long-term use of colchicine Risks and benefits of long-term colchicine for the management of this patient's gout discussed with patient. Benefits include reduced occurrence of flares while we titrate and regulate his uric acid on allopurinol and other uric acid lowering medications. ? Risks include worsening myalgias especially if on statins and GI upset including diarrhea Plan I spent 35 minutes reviewing the record and labs, seeing the patient, discussing the treatment plan and documenting in the medical record Orders: Orders Complete Blood Count Auto Diff Today K12.0 - Recurrent oral aphthae Comprehensive Met. Panel Today K12.0 - Recurrent oral aphthae Hepatitis A,B,C Profile Today K12.0 - Recurrent oral aphthae C Reactive Protein Today K12.0 - Recurrent oral aphthae Erythrocyte Sedimentation Rate Today K12.0 - Recurrent oral aphthae Hepatitis C Viral Load Today K12.0 - Recurrent oral aphthae Hepatitis B Viral DNA Qn Today K12.0 - Recurrent oral aphthae Medications: Changed From colchicine 0.3 mg (1/2 x 0.6 mg) PO Q OTHER DAY 90 days 23 tabs 0RF K12.0 - Recurrent oral aphthae To colchicine 0.6 mg PO DAILY 90 days 90 tabs 1RF K12.0 - Recurrent oral aphthae Coding Level of Care Code Est Pt Level 4 (71744) Complex EM visit Add On G2211 Diagnoses Recurrent aphthous stomatitis K12.0 On colchicine therapy Z79.892
[2024-10-27 10:47] VITALS: BP 134/80; PULSE 57; RESP 18; O2SAT 97; BMI 28.0
--- OUTSIDE RECORDS SUMMARY | 2024-10-27 10:58 | XMS_ITS | Clinical Summary ---
Author Organization [employer] Address [address] [place] [address] 7t [place] [address] Care Team Providers Care Gate Supervisor Name Role Phone Vic Benoit MD Primary Care Prov ider Allergies No known active allergies Medications methadone (Dolophine) 5 MG/5ML solution Take 125 mL by mouth in the morning. [facility] [place] Active cloNIDine (Catapres) 0.1 MG tablet Take 1 tablet by mouth Once per day. 5 Active colchicine 0.6 MG tablet Take 1 tablet by mouth Once per day. 4 Active omeprazole (PriLOSEC) [address] capsule Take 1 capsule by mouth 2 times daily. 4 Active polyethylene glycol, PEG, 3350 (Glycolax) 17 GM/SCOOP powder Take 17 g by mouth Once per day. 4 Active losartan (Cozaar) 25 MG tablet Take 1 tablet (25 mg) by mouth Once per day. 90 tablet 3 5 09/28/19 26 Active Active Problems Problem Noted Date Diagnosed Date Low libido 09/27/2024 Assessment & Plan (09/27/2024 9:42 AM EDT): Patient denied having morning erections, refers having low libido, will check testosterone Costochondritis 03/06/2024 Assessment & Plan (03/06/2024 4:41 PM EDT): Pain was reproducible to touch, continue lidocaine, warm/cold pads, take tylenol/ibuprofen as needed Nicotine dependence 03/15/2023 Overview (03/15/2023): One-half a pack per day. I counselled to STOP smoking. Hepatitis B 03/15/2023 Overview (03/15/2023): Refuses treatment Depressive disorder 03/15/2023 Overview (03/15/2023): Controlled with SSRI Behcet's syndrome 03/15/2023 Overview (03/15/2023): Oral (current) and genital (in childhood) ulcers, arthritis, cutaneous lesions. Followed by Rheumatology. Assessment & Plan (03/06/2024 4:38 PM EDT): Patient lost rheumatology follow up, will place referral Cellulitis of left lower extremity 03/15/2023 Assessment & Plan (03/15/2023 3:23 PM EDT): Will give antibiotics to treat leg wound. Patient was advised to take proper cleaning care of the affected area. Recommended to visit the ED if affected area gets worse. Opioid dependence in remission 01/14/2023 Primary hypertension 12/09/2022 Assessment & Plan (09/27/2024 9:41 AM EDT): Patient refers nurses check his blood pressure and has remained stable, could not provide me today results, reinforced importance of low sodium diet and exercise as tolerated, keep bp log, follow up in 4 months Assessment & Plan (12/09/2022 10:51 AM EDT): Controlled, on losartan, reinforced low sodium diet and exercise as tolerated QT prolongation 12/09/2022 Assessment & Plan (12/09/2022 10:52 AM EDT): Today was 417, methadone was decreased and hydrochlorothiazide was switched for losartan Screening for colon cancer 11/06/2022 Assessment & Plan (11/06/2022 8:42 AM EDT): Will refer for screening colon cancer Hepatitis C antibody positive in blood Assessment & Plan (03/06/2024 4:39 PM EDT): Will refer back to hep c team, patient want to undergo treatment, discussed importance of adherance to therapy and avoid missing appointments Assessment & Plan (11/05/2022 9:26 AM EDT): Will refer to hep c team for treatment, patient notified, he agree Bilateral lower extremity edema 10/13/2022 Assessment & Plan (10/13/2022 5:03 PM EDT): Appears to be vascular stasis but ordering cbc, cmp, tsh, lipid, hiv, hep, b12/folate to be safe. Differentials: Behcets syndrome, pulmonary hypertension, liver disease, CHF, kidney failure, thrombosis Ordered compression stockings 15-20 mmhg Elevated blood pressure reading 10/13/2022 Assessment & Plan (11/05/2022 9:28 AM EDT): Controlled, although today was borderline, he refers yesterday had a bag of chips, and noticed increased bp, readings, reinforced low sodium diet and exercise as tolerated Assessment & Plan (10/13/2022 11:09 AM EDT): We discussed that he needs to take his blood pressure medication everyday and not just a few times a week or when he feels like he needs it. I gave him a BP log and instructed him to check his BP twice a day. F/up 1 month Sensorineural hearing loss (SNHL) of both ears 1 07/03/2007 Overview (03/15/2023): Dr. Daniel Mckeon Resolved Problems Problem Noted Date Diagnosed Date Resolved Date Edema 10/13/2022 10/13/2022 Encounters Date Type Department Care Team Description 09/27/2024 9:30 AM EDT Telemedicine [facility] [address] [place] [address] Vic Benoit MD Screening for colon cancer (Primary Dx); Primary hypertension; Low libido 09/27/2024 Patient Outreach [facility] [address] [place] [address] Vic Benoit MD Care Coordination 09/27/2024 Travel 09/26/2024 Telephone [facility] [address] [place] [address] Vic Benoit MD chart prep 09/18/2024 Telephone [facility] [address] [place] [address] Vic Benoit MD 09/08/2024 Patient Outreach [facility] [address] [place] [address] Vic Benoit MD Care Coordination (Outreach) 09/08/2024 Population Health Risk Score [facility] () [address] [address] Provider, Population Health Generic 09/01/2024 Patient Outreach [facility] [address] [place] [address] Vic Benoit MD Care Coordination (Outreach) 08/24/2024 Telephone [facility] [address] [place] [phone] Hilario Caruso, PharmD 08/24/2024 Patient Outreach [facility] [address] [place] [address] Vic Benoit MD Care Coordination (Outreach) 08/24/[address] [address] Vic Benoit MD ER Follow-up 08/07/[address] [address] Yanna Leahy, SONI Hep C Start Treatment from Last 3 Months Immunizations Name Administration Dates Next Due Hep A, Adult 03/20/2008 Hep B, Unspecified 04/19/2006 Influenza injectable quadriv alent IIV4 with preservative 06/23/2017 Influenza, IIV3, injectable 06/13/2007, 6 Pneumococcal Polysaccharide PPSV23 07/07/2007 Td (adult), unspecified 07/30/1995 Tdap 11/05/2022,01/30/2008 Zoster, Recombinant 11/05/2022 Social History Tobacco Use Types Packs/Day Years Used Date Smoking Tobacco: Some Days Cigarettes Passive Smoke Exposure: Current Smokeless Tobacco: Never Depression Answer Date Recorded Patient Health Questionnaire-9 Score 0 09/27/2024 Patient Health Questionnaire-9 Score 0 09/27/2024 Last PHQ-9: Questionnaire Data Not on file 0 09/27/2024 Housing Stability Answer Date Recorded What is your housing situation today? I have edilberto diaz 09/27/[address] you li ve. Do you have problems with any of the following? None of the above 09/27/2024 Food Insecurity Answer Date Recorded Within the past 12 months, y ou worried that your food would run out before you got money to buy more: Never True 09/27/2024 Within the past 12 months,th e food you bought just didn't last and you didn't have enough money to get more: Never True 07/2024 Transportation Answer Date Recorded In the past 12 months, has l ack of transportation kept you from medical appts, meetings, work or from getting things needed for daily living? No 09/27/2024 Utilities Answer Date Recorded In the past 12 months, has t he electric, gas, oil or water company threatened to shut off services in your home? No 09/27/2024 Depression Answer Date Recorded Patient Health Questionnaire-2 Score 0 09/27/2024 Internet Access Answer Date Recorded Internet Access Q1 Yes 09/27/2024 Internet Access Q2 Not on file 09/27/2024 Sex and Gender Information Value Date Recorded Sex Assigned at Male 04/27/2022 10:24 AM EDT Legal Sex Male 10:24 AM EDT Gender Identity Male 04/27/2022 10:24 AM EDT Sexual Orientation Choose not to disclose 2021 10:24 AM EDT Last Filed Vital Signs Vital Sign Reading Time Taken Comments Blood Pressure 168/92 07/24/2024 1:58 PM EST Pulse 64 07/24/2024 1:58 PM EST Temperature 36.2 ??C (97.2 ??F) 07/24/2024 1:58 PM ES T Respiratory Rate 16 07/24/2024 1:58 PM EST Oxygen Saturation 95% 03/06/2024 11:43 AM EDT Inhaled Oxygen Concentration - - Weight 81.6 kg (180 lb) 07/24/2024 1:58 PM EST Height 175.3 cm (5' 9 ) 03/06/2024 11:43 AM EDT Body Mass Index 26.58 03/06/2024 11:43 AM EDT Plan of Treatment Upcoming Encounters Date Type Department Care Team (Late st Contact Info) Description 12/21/2024 10:15 AM EDT Telemedicine [facility] [address] [place] [address] Vic Benoit MD [address] [place] [address] Health Maintenance Due Date Last Done Comments CT Colonography 1965 FIT DNA/Cologuard 1965 FIT 1965 FOBT 1965 Sigmoidoscopy 1965 Hepatitis B Vaccines (2 of 3 - 19+ 3-dose series) 05/17/2006 04/19/2006 Pneumococcal Vaccine: 50+ Years (2 of 2 - PCV) 07/07/2008 07/07/2007 Hepatitis A Vaccines (2 of 2 - Risk 2-dose series) 09/17/2008 03/20/2008 Zoster Vaccines (2 of 2) 12/31/2022 11/05/2022 COVID-19 Vaccine (3 - 2023-2 5 season) 2024 10/14/2021, 11/08/2020 Influenza Vaccine (#1) 2024 7, 06/13/2007, 05/17/2006 Tobacco Screening 07/24/2025 07/24/2024 Alcohol/Substance Use Screening 09/27/2025 09/27/2024 Depression Screening 09/27/2025 09/27/2024, 09/27/2024 SDOH Screening 09/27/2025 09/27/2024 Colonoscopy 11/09/2025 Colorectal Cancer Screening 11/09/2025 Lipid Panel 10/14/2027 10/13/2022 DTaP/Tdap/Td Vaccines (3 - T d or Tdap) 11/05/2032 11/05/2022, 01/30/2008, 07/30/1995 RSV Patients and Patients Aged 60 years or older (1 - 1-dose 75+ series) 2040 HIV Screening Completed 04/14/2024, 04/14/2024, 10/13/2022 HIB Vaccines Aged Out No longer eligi ble based on patient's age to complete this topic HPV Vaccines Aged Out No longer eligi ble based on patient's age to complete this topic IPV Vaccines Aged Out No longer eligi ble based on patient's age to complete this topic Meningococcal Vaccine Aged Out No sandy terrence eligible based on patient's age to complete this topic RSV under 20 months Aged Out No longe r eligible based on patient's age to complete this topic Rotavirus Vaccines Aged Out No longer eligible based on patient's age to complete this topic Procedures Procedure Name Priority Date/Time Associated Diagnosis Comments HIV 1/2 ANTIGEN/ANTIBODY, FOURTH GENERATION W/RFL Routine 04/14/2024 9:28 AM EDT Hepatitis C antibody positive in blood LIPID PANEL, STANDARD Routine 10/13/2022 11:15 AM EDT Bilateral lower extremity edema from Last 3 Months or Most Recently Relevant to Health Maintenance Results * HIV-1/2 Antigen and Antibodies, Fourth Generation, with Reflexes (04/14/2024 9:28 AM EDT) HIV AB/AG Nonreactive Nonreactive [facility] Comment:HIV-1 p24 Ag and/or HIV-1/HIV-2 Ab not detected.A test result that is nonreactive does not exclude thepossibility of exposure to or infection with HIV-1 and/orHIV-2. Nonreactive results in this assay for individualswith prior exposure to HIV-1 and/or HIV-2 may be due toantigen and antibody levels that are below the limit ofdetection of this assay.The [email or web address] HIV Ag/Ab Combo assay result andsupplemental assay results should be interpreted inconjunction with the patient's clinical presentation,history and other laboratory results. If the results areinconsistent with clinical evidence, additional testing issuggested to confirm the result. 04/14/2024 9:28 AM EDT 04/14/2024 9:38 AM EDT Vic Bradley MD LAB BLOOD ORDERABL ES Final Result [facility] [address] [place] [phone] * Lipid Panel, Standard (10/13/2022 11:15 AM EDT) Pathologist [facility] Cholesterol, Total 141 <200 mg/dL [facility] HDL Cholesterol 55 > OR = 40 mg/dL [facility] Triglycerides 45 <150 mg/dL [facility] LDL Cholesterol 73 mg/dL (calc) [facility] Comment: Reference range: <100 Desirable range <100 mg/dL for primary prevention; ?? <70 mg/dL for patients with CHD or diabetic patients with > or = 2 CHD risk factors. LDL-C is now calculated using the Carlos-Reddy calculation, which is a validated novel method providing better accuracy than the Friedewald equation in the estimation of LDL-C. Carlos SS et al. TRUMAN. 2013;310(19): 9314-1426 (http://education.8digits.MiniMonos/faq/UZD672) Chol/HDLC Ratio 2.6 <5.0 (calc) [facility] Non-HDL Cholesterol 86 <130 mg/dL (calc) [facility] Comment: For patients with diabetes plus 1 major ASCVD risk factor, treating to a non-HDL-C goal of <100 mg/dL (LDL-C of <70 mg/dL) is considered a therapeutic option. Blood Venous blood specimen / Unknown 10/13/2022 11:15 AM EDT 10/13/2022 11:17 AM EDT Narrative [facility] - 10/16/2022 1:32 PM EDT FASTING:NO FASTING: NO [facility] LAB BLOOD ORDERABLES Final Res ult [facility] [address], [place] [address] [facility] [address] [place] [address] from Last 3 Months or Most Recently Relevant to Health Maintenance Insurance [employer] C3 Care Teams Gate Supervisor Relationship Specialty Start Date End Date Vic Benoit MD [address] [place] [phone] PCP - General Internal Medicine 11/21/19
--- OUTSIDE RECORDS SUMMARY | 2024-10-27 10:58 | XMS_ITS | Patient Health Record ---
Author Organization [facility] Address [address] [place], [place] [id number] Care Team Providers Care Radio Journalist Name Role Phone Mail, Pickup Primary Care Provider Gita Mittal Reason For Referral No Information Encounters Encounter Location Date Provider Diagnosis [facility] [address] [place], [place] [phone] 11/16/2023 Gita Kwong [facility] [employer] [address] [place] [phone] 01/27/2024 Gita Kwong [facility] [employer] [address] [place] [phone] 02/25/2024 Gita Kwong [facility] [employer] [address] [place] [phone] 02/22/2024 Gita Kwong Plan Of Treatment No Information Insurance Providers Payer Name Payer Address Payer Phone Subscriber Number Group Number Insured Name Patient Relationship to Insured Coverage Start Date Coverage End Date [facility] [employer] [address] [place] [address] [phone] [id number] Ferny Lim Self - patient is the insured 3 3
--- OUTSIDE RECORDS SUMMARY | 2024-10-27 10:58 | XMS_ITS | Encounter Summary ---
Author Organization [employer] Address [address] [facility] [address] [place] [address] Care Team Providers Care Sign Maker Name Role Phone Vic Benoit MD Primary Care Prov ider Reason for Visit * Reason Onset Date Comments Nurse Triage 10/18/2023 Encounter Details Date Type Department Care Team ([facility] st Contact Info) Description 10/18/2023 Telephone [facility] [address] [place] [address] Vic Benoit MD [address] [place] [address] Nurse Triage Social History Tobacco Use Types Packs/Day Years Used Date Smoking Tobacco: Some Days Cigarettes Passive Smoke Exposure: Current Smokeless Tobacco: Never Depression Answer Date Recorded Patient Health Questionnaire-9 Score 0 10/13/2022 Housing Stability Answer Date Recorded What is your housing situation today? I do not have housing (Staying with others, in a hotel, in a [place] [facility], living outside on the street, on a beach, in a car, or in a park 04/06/[address] you li ve. Do you have problems with any of the following? None of the above 04/06/2023 Food Insecurity Answer Date Recorded Within the past 12 months, y ou worried that your food would run out before you got money to buy more: Often true 04/14/2023 Within the past 12 months,th e food you bought just didn't last and you didn't have enough money to get more: Often true Transportation Answer Date Recorded In the past 12 months, has l ack of transportation kept you from medical appts, meetings, work or from getting things needed for daily living? No 04/14/2023 Utilities Answer Date Recorded In the past 12 months, has t he electric, gas, oil or water company threatened to shut off services in your home? No 04/14/2023 Depression Answer Date Recorded Patient Health Questionnaire-2 Score 0 10/13/2022 Sex and Gender Information Value Date Recorded Sex Assigned at Male 04/27/2022 10:24 AM EDT Legal Sex Male 10:24 AM EDT Gender Identity Male 04/27/2022 10:24 AM EDT Sexual Orientation Choose not to disclose 2021 10:24 AM EDT documented as of this encounter Miscellaneous Notes * Telephone Encounter - Rita Leyva - 10/18/2023 9:49 AM EDT Symptom: Confusion Outcome: Schedule a same-day appointment or talk to a nurse or provider today Reason: Caller denied all higher acuity questions The caller accepted this outcome documented in this encounter Plan of Treatment Upcoming Encounters Date Type Department Care Team (Late st Contact Info) Description 12/21/2024 10:15 AM EDT Telemedicine [facility] [address] [place] [address] Vic Benoit MD [address] [place] [address] documented as of this encounter Visit Diagnoses Not on filedocumented in this encounter Additional Health Concerns Assessment Noted Time PHQ-9 Depression Total Score: 0 10/14/19 23 10:24 AM EDT documented as of this encounter Care Teams Sign Maker Relationship Specialty Start Date End Date Vic Benoit MD [address] [place] [address] PCP - General Internal Medicine 11/21/19 documented as of this encounter
== END 2024-10-27 11:21 | disposition home or self-care (01) ==
LOC: HO.RHE 10:00
PROVIDERS: PCP Internal Medicine; Visit Provider Student in an Organized Health Care Education/Training Program
DX: K12.0 Recurrent oral aphthae (principal); Z79.899 Other long term (current) drug therapy
CPT/HCPCS: 99214

== ENCOUNTER 2025-01-08 08:28 | Outpatient (REF) | payer MEDICAID, SELFPAY ==
--- OUTSIDE RECORDS SUMMARY | 2025-01-08 08:34 | XMS_ITS | Clinical Summary ---
Author Organization [employer] Address [address] [place] [address] 7[address] [place] [address] Care Team Providers Care Dairy And Food Laboratory Assistant Name Role Phone Vic Benoit MD Primary Care Prov ider Allergies No known active allergies Medications methadone (Dolophine) 5 MG/5ML solution Take 125 mL by mouth in the morning. [facility] [place] Active cloNIDine (Catapres) 0.1 MG tablet Take 1 tablet by mouth Once per day. 07/12/19 25 Active colchicine 0.6 MG tablet Take 1 tablet by mouth Once per day. 04/14/20 24 Active omeprazole (PriLOSEC) [address] capsule Take 1 capsule by mouth 2 times daily. 02/18/20 24 Active polyethylene glycol, PEG, 3350 (Glycolax) 17 GM/SCOOP powder Take 17 g by mouth Once per day. 02/18/20 24 Active losartan (Cozaar) 25 MG tablet Take 1 tablet (25 mg) by mouth Once per day. 90 tablet 3 12/22/19 25 026 Active losartan (Cozaar) 25 MG tablet Take 1 tablet (25 mg) by mouth Once per day. 90 tablet 3 09/28/19 25 025 Discontinued(Re order (will not trigger notification to Pharmacy)) Active Problems Problem Noted Date Diagnosed Date [...] 01/14/2023 Primary hypertension 12/09/2022 Assessment & Plan (12/21/2024 12:34 PM EDT): Controlled, keep low sodium diet and exercise as tolerated, keep bp log, follow up 3 months Assessment & Plan (09/27/2024 9:41 AM EDT): [...] Encounters Date Type Department Care Team Description 12/22/2024 Orders Only [facility] [address] [place] [address] Shani Hoyt MD 12/21/2024 10:15 AM EDT Telemedicine [facility] [address] [place] [address] Vic Benoit MD Low libido (Primary Dx); Primary hypertension 12/21/2024 Travel 12/20/2024 Telephone [facility] [address] [place] [address] Vic Benoit MD chart prep 12/18/2024 Orders Only [facility] [address] [place] [address] [phone] Yanna Leahy, SONI Hepatitis C antibody positive in blood (Primary Dx) 12/06/2024 Telephone [facility] [address] [place] [address] Vic Benoit MD Lab Orders 10/31/2024 Patient Outreach [facility] [address] [place] [address] Vic Benoit MD Care Coordination (Outrteach) 10/27/2024 Orders Only GENERIC EXTERNAL DATA DEPARTMENT Provider, Generic External Data from Last 3 Months Immunizations Immunization Administration Dates Next Due Hep A, Adult [...] Sign Reading Time Taken Comments Blood Pressure 121/88 12/21/2024 10:05 AM EDT Pulse 64 07/24/2024 1:58 PM EST Temperature 36.2 C (97.2 F) 07/24/2024 1:58 PM EST Respiratory Rate 16 07/24/2024 1:58 PM EST Oxygen Saturation 95% 03/06/2024 11:43 AM EDT Inhaled Oxygen Concentration - - Weight 81.6 kg (180 lb) 07/24/2024 1:58 PM EST Height 175.3 cm (5' 9 ) 03/06/2024 11:43 AM EDT Body Mass Index 26.58 03/06/2024 11:43 AM EDT Plan of Treatment Upcoming Encounters Date Type Department Care Team (Late st Contact Info) Description 03/26/2025 9:30 AM EDT Telemedicine [facility] [address] [place] [address] Vic Benoit MD [address] [place] [address] Health Maintenance Due Date Last Done Comments CT Colonography 1965 Colonoscopy 1965 FIT 1965 Sigmoidoscopy 1965 Disability Screening 1965 Hepatitis B Vaccines (2 of 3 - 19+ 3-dose series) 05/17/2006 04/19/2006 Pneumococcal Vaccine: 50+ Years (2 of 2 - PCV) 07/07/2008 07/07/2007 Hepatitis A Vaccines (2 of 2 - Risk 2-dose series) 09/17/2008 03/20/2008 Zoster Vaccines (2 of 2) 12/31/2022 11/05/2022 FOBT 11/10/2023 11/09/2022 COVID-19 Vaccine (3 - 2023-2 5 season) 2024 10/14/2021, 11/08/2020 Influenza Vaccine (#1) 2025 7, 06/13/2007, 05/17/2006 Tobacco Screening 07/24/2025 07/24/2024 Alcohol/Substance Use Screening 09/27/2025 09/27/2024 Depression Screening 09/27/2025 09/27/2024, 09/27/2024 SDOH Screening 09/27/2025 09/27/2024 Colorectal Cancer Screening 11/09/2025 FIT DNA/Cologuard 11/09/2025 11/09/2022 Lipid Panel 10/14/2027 10/13/2022 DTaP/Tdap/Td Vaccines (3 [...] patient's age to complete this topic Meningococcal B Vaccine Aged Out No l onger eligible based on patient's age to complete [...] Procedure Name Priority Date/Time Associated Diagnosis Comments HEPATITIS B VIRUS DNA, QN, REAL TIME PCR Routine 10/27/2024 11:40 AM EDT HEPATITIS C VIRAL RNA, QUANTITATIVE, REAL-TIME PCR Routine 10/27/2024 11:40 AM EDT HEPATITIS PANEL, GENERAL Routine 10/27/2024 11:40 AM EDT SED RATE BY MODIFIED WESTERGREN Routine 10/27/2024 11:40 AM EDT C-REACTIVE PROTEIN Routine 10/27/2024 11 :40 AM EDT COMPREHENSIVE METABOLIC PANEL Routine 10/27/2024 11:40 AM EDT CBC WITH AUTO DIFFERENTIAL Routine 10/27/2024 11:40 AM EDT TESTOSTERONE, FREE (DIALYSIS) AND TOTAL,MS Routine 10/27/2024 11:40 AM EDT Low libido HIV 1/2 ANTIGEN/ANTIBODY, FOURTH GENERATION W/RFL Routine 04/14/2024 9:28 AM EDT Hepatitis C antibody positive in blood HM FIT DNA/COLOGUARD CANCER SCREENING Routine 11/09/2022 1:46 PM EDT LIPID PANEL, STANDARD Routine 10/13/2022 11:15 AM EDT Bilateral lower extremity edema from Last 3 Months or Most Recently Relevant to Health Maintenance Results * (ABNORMAL) Hepatitis Panel, General (10/27/2024 11:40 AM EDT) Pathologist [facility] Hepatitis A IgM Nonreactive Nonreactive [facility] Comment:IgM antibodies to COOPER V not detected; does not exclude earlyacute or recovered HAV infection. ~Hepatitis B Surface Antibody REACTIVE Nonreactive [facility] Comment:REACTIVE: > 11.99 mI U/mL Hepatitis B Core Antibody Reactive Nonreactive [facility] Comment:Presumptive evidence of anti-HBc. Hepatitis C Antibody Reactive(A) Nonreactive [facility] Comment:Presumptive evidence of antibodies to HCV. Hepatitis B Surface Ag Negative Negative [facility] 10/27/2024 11:4 0 AM EDT 10/27/2024 11:40 AM EDT Generic External Data Provider LAB BLOOD ORDERAB LES Final Result Performing Organization Address [facility] Co de Phone Number [facility] [address] [place] [address] [phone] * Hepatitis C Viral RNA, Quantitative, Real-Time PCR (10/27/2024 11:40 AM EDT) [facility] Hepatitis C Viral Load <15 NOT DETECTED NOT DETECTED IU/mL [facility] HCV Log PCR <1.18 NOT DETECTED NOT DETECTED Log IU/mL [facility] Comment:For additional infor bel, please refer tohttp://education.[employer]/faq/WQI14w1(This link is being provided for informational/educational purposes only.)THIS TEST WAS PERFORMED AT:[employer] [place] [phone] ODEN MD 10/27/2024 11:4 0 AM EDT 10/27/2024 11:40 AM EDT us Generic External Data Provider LAB BLOOD ORDERAB LES Final Result Performing Organization Address [facility] Co de Phone Number [facility] [address] [place] [address] [phone] * (ABNORMAL) CBC auto differential (10/27/2024 11:40 AM EDT) White Blood Count 5.5 4.8 - 10.8 X10*3/uL [facility] Red Blood Count 4.48(L) 4.60 - 5.80 X10*6/uL [facility] Hemoglobin 13.0(L) 14.0 - 18.0 g/dl [facility] Hematocrit 39.0(L) 42.0 - 52.0 % [facility] Mean Corpuscular Volume 87.1 80.0 - 98.0 fL [facility] Mean Corpuscular Hemoglobin 29.0 27.0 - 33.0 pg [facility] Mean Corpuscular HGB Conc 33.3 31.0 - 36.0 g/dl [facility] Red Cell Distribution Width 13.1 11.0 - 16.0 % [facility] Platelet Count 210 160 - 400 X10*3/uL [facility] Mean Platelet Volume 11.2 9.4 - 12.4 fL [facility] Neutrophils Percent Auto 62.6 45 - 73 % [facility] Imm Gran Pct Auto 0.2 0.0 - 0.4 % [facility] Lymphocytes Percent Auto 27.0 20 - 40 % [facility] Monocytes Percent Auto 8.7 2 - 11 % [facility] Eosinophils Percent Auto 1.1 0 - 4 % [facility] Basophils Percent Auto 0.4 0 - 2 % [facility] NRBC Pct Auto 0.0 0.0 - 0.2 /100WBC [facility] Neutrophils Absolute Auto 3.5 2.0 - 8.3 x10*3/uL [facility] Imm Gran Abs Auto 0.01 0.00 - 0.03 X10*3/uL [facility] Lymphocytes Absolute Auto 1.5 1.2 - 4.9 X10*3/uL [facility] Monocytes Absolute Auto 0.5 0.1 - 1.2 X10*3/uL [facility] Eosinophils Absolute Auto 0.1 0.0 - 0.4 X10*3/uL [facility] Basophils Absolute Auto 0.0 0.0 - 0.2 X10*3/uL [facility] NRBC Abs Auto 0.000 0.0 - 0.012 X10*3/uL [facility] 10/27/2024 11:4 0 AM EDT 10/27/2024 11:40 AM EDT Generic External Data Provider LAB BLOOD ORDERAB LES Final Result Performing Organization Address [facility] de Phone Number [facility] [address] [place] [phone] * Hepatitis B Virus DNA, Quantitative, Real-Time PCR (10/27/2024 11:40 AM EDT) Pathologist [facility] Hepatitis B Viral DNA Qn - cp NOT DETECTED NOT DETECTED Log IU/mL [facility] Comment:This test was perfor med using Real-Time Polymerase ChainReaction.Reportable Range: 10 IU/mL to 1,000,000,000 IU/mL.(1.00 Log IU/mL to 9.00 Log IU/mL).THIS TEST WAS PERFORMED AT:[employer] [place] [phone] ODEN MD Hepatitis B Viral DNA Qn-IU/mL NOT DETECTED NOT DETECTED IU/mL [facility] 10/27/2024 11:4 0 AM EDT 10/27/2024 11:40 AM EDT Generic External Data Provider LAB BLOOD ORDERAB LES Final Result Performing Organization Address [facility] de Phone Number [facility] [address] [place] [phone] * (ABNORMAL) Sed Rate by Modified Jaimeeren (10/27/2024 11:40 AM EDT) Erythrocyte Sedimentation Rate 65(H) 0 - 15 MM/HR [facility] Comment:Patients with polycy themia and many hemoglobin abnormalitiesmay have depressed sed rates whereas patients with anemiamay have elevated sed rates. 10/27/2024 11:4 0 AM EDT 10/27/2024 11:40 AM EDT us Generic External Data Provider LAB BLOOD ORDERAB LES Final Result [facility] [address] [place] [phone] * (ABNORMAL) Testosterone, Free (Dialysis) And Total, MS (10/27/2024 11:40 AM EDT) Pathologist [facility] Testosterone, Total 200(A) 250 - 1100 ng/dL [facility] Comment:Men with clinically significant hypogonadal symptoms and testosterone valuesrepeatedly in the range of the 200-300 ng/dL or less, may benefit fromtestosterone treatment after adequate risk and benefits counseling.For additional information, please refer tohttps://education.[employer]/faq/GSP667(This link is being provided for informational/educational purposes only.)(Note)This test was developed and its analytical performancecharacteristics have been determined by [employer]. It hasnot been cleared or approved by the FDA. This assay hasbeen validated pursuant to the CLIA regulations and isused for clinical purposes. Testosterone, Free 21.1(A) 35.0 - 155.0 pg/mL [facility] Comment:(Note)This test was developed and its analytical performancecharacteristics have been determined by [employer]. It hasnot been cleared or approved by the FDA. This assay hasbeen validated pursuant to the CLIA regulations and isused for clinical purposes.[facility] [id number] [place] [address],[address] [place] [address] [phone] Mariano MD, PhDTHIS TEST WAS PERFORMED AT:[id number] [place] [address] [place] [phone] MARIANO MD,PHD Blood Venous blood specimen / Unknown 10/27/2024 11:40 AM EDT 10/27/2024 11:40 AM EDT us Vic Bradley MD LAB BLOOD ORDERABL ES Final Result Performing Organization Address [facility]/ZIP Co de Phone Number [facility] [address] [place] [phone] * (ABNORMAL) C-reactive Protein (10/27/2024 11:40 AM EDT) Pathologist [facility] C Reactive Protein 1.35(H) < or = 0.50 mg/dL [facility] 10/27/2024 11:4 0 AM EDT 10/27/2024 11:40 AM EDT Generic External Data Provider LAB BLOOD ORDERAB LES Final Result Performing Organization Address [facility]/ZIP Co de Phone Number [facility] [address] [place] [phone] * (ABNORMAL) Comprehensive Metabolic Panel (10/27/2024 11:40 AM EDT) Pathologist [facility] Sodium 142 135 - 145 mmol/L [facility] Potassium 4.2 3.3 - 5.1 mmol/L [facility] Chloride 103 96 - 108 mmol/L [facility] Carbon Dioxide 32(H) 22 - 29 mmol/L [facility] Anion Gap 11(L) 12 - 20 [facility] Urea Nitrogen (BUN) 11 9 - 16 mg/dL [facility] Creatinine, Serum 0.68 0.5 - 1.4 mg/dL [facility] Estimated Glomerular Filt Rate >60 [facility] Comment:Chronic Kidney Disea se: Estimated GFR < 60 mL/min/1.82p1Vxyvuc Kidney Disease: Estimated GFR < 15 mL/min/1.73m2 Glucose 79 60 - 115 mg/dL [facility] Calcium 9.6 8.4 - 10.2 mg/dL [facility] Bilirubin, Total 0.4 0.0 - 1.0 mg/dL [facility] Aspartate Amino Transferase 51(H) 5 - 37 U/L [facility] Alanine Aminotransferase 69(H) 0 - 40 U/L [facility] Total Protein 8.6(H) 6.5 - 8.0 g/dL [facility] Albumin Level 4.3 3.5 - 5.0 g/dL [facility] Alkaline Phosphatase 119(H) 39 - 117 U/L [facility] 10/27/2024 11:4 0 AM EDT 10/27/2024 11:40 AM EDT us Generic External Data Provider LAB BLOOD ORDERAB LES Final Result [facility] [address] [place] [phone] * HIV-1/2 Antigen and Antibodies, Fourth Generation, with Reflexes (04/14/2024 9:28 AM EDT) HIV AB/AG Nonreactive Nonreactive [facility] Comment:HIV-1 p24 Ag and/or HIV-1/HIV-2 Ab not detected.A test result that is nonreactive does not exclude thepossibility of exposure to or infection with HIV-1 and/orHIV-2. Nonreactive results in this assay for individualswith prior exposure to HIV-1 and/or HIV-2 may be due toantigen and antibody levels that are below the limit ofdetection of this assay.The [employer] HIV Ag/Ab Combo assay result andsupplemental assay results should be interpreted inconjunction with the patient's clinical presentation,history and other laboratory results. If the results areinconsistent with clinical evidence, additional testing issuggested to confirm the result. 04/14/2024 9:28 AM EDT 04/14/2024 9:38 AM EDT us Vic Bradley MD LAB BLOOD ORDERABL ES Final Result [facility] [address] [place] [phone] [phone] * FIT DNA/Cologuard Cancer Screening (11/09/2022 1:46 PM EDT) Stool Historical Provider HEALTH MAINTENANCE Final Result * Lipid Panel, Standard (10/13/2022 11:15 AM EDT) Cholesterol, Total 141 <200 mg/dL [facility] [place] [facility] HDL Cholesterol 55 > OR = 40 mg/dL [facility] [place] [facility] [place] [facility] Triglycerides 45 <150 mg/dL [facility] [place] [facility] LDL Cholesterol 73 mg/dL (calc) [facility] [place] [facility] [place] [facility] Comment: Reference range: <100 Desirable range <100 mg/dL for primary prevention; <70 mg/dL for patients with CHD or diabetic patients with > or = 2 CHD risk factors. LDL-C is now calculated using the Carlos-Reddy calculation, which is a validated novel method providing better accuracy than the Friedewald equation in the estimation of LDL-C. Carlos SS et al. TRUMAN. 2013;310(19): 8430-6095 (http://education.[employer]/faq/FPC688) Chol/HDLC Ratio 2.6 <5.0 (calc) [facility] [place] [facility] Non-HDL Cholesterol 86 <130 mg/dL (calc) [facility] [place] [facility] Comment: For patients with diabetes plus 1 major ASCVD risk factor, treating to a non-HDL-C goal of <100 mg/dL (LDL-C of <70 mg/dL) is considered a therapeutic option. Blood Venous blood specimen / Unknown 10/13/2022 11:15 AM EDT 10/13/2022 11:17 AM EDT Narrative [facility] - 10/16/2022 1:32 PM EDT FASTING:NO FASTING: NO Douglas [facility] LAB BLOOD ORDERABLES Final Res ult [facility] [address], [place] [phone] [facility] [address] [place] [phone] from Last 3 Months or Most Recently Relevant to Health Maintenance Insurance [address] [place], [place] [address] Care Teams Dairy And Food Laboratory Assistant Relationship Specialty Start Date End Date Vic Benoit MD [address] [place] [phone] PCP - General Internal Medicine 11/21/19
--- OUTSIDE RECORDS SUMMARY | 2025-01-08 08:34 | XMS_ITS | Patient Health Record ---
Author Organization [facility] Address [address] [place], [place] [phone] Care Team Providers Care Director Of Athletics Name Role Phone [employer] - DO NOT USE, Mail Pickup Primary Care Provider Unavailable Gita Kwong Unavailable Reason For Referral No Information Encounters Encounter Location Date Provider Diagnosis [facility] [address] [place] [address] [phone] 01/27/2024 Gita Kwong [facility] [address] [place] [address] [phone] 02/25/2024 Gita Kwong [facility] [address] [place] [address] [phone] 02/22/2024 Gita Kwong Plan Of Treatment No Information Insurance Providers Payer Name Payer Address Payer Phone Subscriber Number Group Number Insured Name Patient Relationship to Insured Coverage Start Date Coverage End Date [facility] [employer] [address] [place] [address] [place] [phone] [id number] Ferny Lim Self - patient is the insured 3 3
[2025-01-08 15:53] LABS: Cholesterol 111 mg/dL (<200); HDL Cholesterol 43 mg/dL (>40); Iron 33 mcg/dL (45-160); Percent Iron Saturation 14 % (15-50); Total Iron Binding Capacity 230 mcg/dL (228-428); Triglycerides 55 mg/dL (<150); Unsaturated Iron Binding 197 ug/dL
[2025-01-08 16:22] LABS: Folate 6.6 ng/mL (> or = 4.0); Vitamin B12 309 pg/mL (200-900)
[2025-01-12 17:28] LABS: Testosterone, Free 19.0 pg/mL (35.0-155.0)
== END 2025-01-08 08:29 | disposition home or self-care (01) ==
LOC: HO.CHCLDS 08:28
PROVIDERS: Visit Provider Internal Medicine
DX: I10 Essential (primary) hypertension (principal); R68.82 Decreased libido
CPT/HCPCS: 36415; 80061; 82607; 82746; 83540; 84402; 84403

== ENCOUNTER 2025-01-10 10:27 | Outpatient (REF) | payer MEDICAID, SELFPAY ==
--- OUTSIDE RECORDS SUMMARY | 2025-01-10 11:03 | XMS_ITS | Clinical Summary ---
Author Organization [employer] Address [address] [place] [address] 7[address] [place] [address] Care Team Providers Care Collections Representative Name Role Phone Vic Benoit MD Primary Care Prov ider Allergies No known active allergies Medications methadone (Dolophine) 5 MG/5ML solution Take 125 mL by mouth in the morning. [facility] Methadone Clinic [facility] Active cloNIDine (Catapres) 0.1 MG tablet Take [...] 90 tablet 3 12/22/19 25 026 Active ferrous gluconate (Fergon) 324 (38 Fe) MG tablet Take 1 tablet (324 mg) by mouth with breakfast. 30 tablet 11 01/09/20 25 026 Active senna-docusate sodium (Senokot-S) 8.6-50 MG tabletIndicatio ns:Constipation , unspecified constipation type Take 1 tablet by mouth Once per day. 90 tablet 3 01/10/20 25 Active losartan (Cozaar) 25 MG tablet Take 1 tablet (25 mg) by mouth Once per day. 90 tablet 3 09/28/19 25 025 Discontinued(Re order (will not trigger notification to Pharmacy)) senna-docusate sodium (Senokot-S) 8.6-50 MG tablet Take 1 tablet by mouth Once per day. 025 Discontinued(Re order (will not trigger notification [...] Encounters Date Type Department Care Team Description 01/08/2025 Results [facility]-Up [facility] [address] [place] [address] Vic Benoit MD Vitamin B12 (Cobalamin) and Folate Panel, Serum, Iron And Total Iron Binding Capacity, Lipid Panel, Standard 12/22/2024 Orders Only [facility] [address] [place] [address] ProviderShani MD 12/21/2024 10:15 AM EDT Telemedicine [facility] [address] [place] [address] Vic Benoit MD Low libido (Primary Dx); Primary hypertension 12/21/2024 Travel 12/20/2024 Telephone [facility] [address] [place] [address] Vic Benoit MD chart prep 12/18/2024 Orders Only [facility] [address] [place] [phone] Yanna Leahy, SONI Hepatitis C antibody positive in blood (Primary Dx) 12/06/2024 Telephone [facility] [address] [place] [address] Vic Benoit MD Lab Orders 10/31/2024 Patient Outreach [facility] [address] [place] [address] Vic Benoit MD Care Coordination (Outrteach) 10/27/2024 [...] Info) Description 03/26/2025 9:30 AM EDT Telemedicine [facility] [address] [place] [address] AlyVic Muller MD [address] [place] [address] Health Maintenance Due Date Last Done Comments [...] 11/09/2025 FIT DNA/Cologuard 11/09/2025 11/09/2022 Lipid Panel 01/08/2030 01/08/2025, 10/13/2022 DTaP/Tdap/Td Vaccines (3 - T d [...] Procedure Name Priority Date/Time Associated Diagnosis Comments LIPID PANEL, STANDARD Routine 01/08/2025 8:29 AM EDT Primary hypertension IRON AND TOTAL IRON BINDING CAPACITY Routine 01/08/2025 8:29 AM EDT Primary hypertension VITAMIN B12/FOLATE, SERUM PANEL Routine 01/08/2025 8:29 AM EDT Primary hypertension HEPATITIS B VIRUS DNA, QN, REAL TIME [...] CANCER SCREENING Routine 11/09/2022 1:46 PM EDT from Last 3 Months or Most Recently Relevant to Health Maintenance Results * Vitamin B12 (Cobalamin) and Folate Panel, Serum (01/08/2025 8:29 AM EDT) Vitamin B12 309 200 - 900 pg/mL [facility] Comment:NORMAL 200-900 PG/ML INDETERMINATE 160-199 PG/ML DEFICIENT < 160 PG/ML Folate 6.6 > or = 4.0 ng/mL [facility] Comment:Reference Values:> o r = 4.0 ng/mL< 4.0 ng/mL suggests folate deficiency Methotrexate, aminopterin and folinic acid(leucovorin) are chemotherapeutic agents whose molecularstructures are similar to folate; therefore, the Architectfolate assay cannot be used for patients using these drugs. Blood Venous blood specimen / Unknown 01/08/2025 8:29 AM EDT 01/08/2025 3:28 PM EDT Vic Bradley MD LAB BLOOD ORDERABL ES Final Result Performing Organization Address [facility] Co de Phone Number [facility] [address] [place] [phone] * (ABNORMAL) Iron And Total Iron Binding Capacity (01/08/2025 8:29 AM EDT) Iron 33(L) 45 - 160 mcg/dL [facility] Total Iron Binding Capacity 230 228 - 428 mcg/dL [facility] Percent Iron Saturation 14(L) 15 - 50 % [facility] Unsaturated Iron Binding 197 ug/dL [facility] Blood Venous blood specimen / Unknown 01/08/2025 8:29 AM EDT 01/08/2025 3:28 PM EDT us Vic Bradley MD LAB BLOOD ORDERABL ES Final Result Performing Organization Address [facility] Co de Phone Number [facility] [address] [place] [phone] * Lipid Panel, Standard (01/08/2025 8:29 AM EDT) Triglycerides 55 <150 mg/dL [facility] Comment:Desirable Triglyceri de: less than 150 mg/dLBorderline High Triglyceride 150-199 mg/dLHigh Triglyceride: 200-499 mg/dLVery High Triglyceride: greater than or equal to 5OO mg/dL Cholesterol 111 <200 mg/dL [facility] Comment:Desirable Cholestero l: less than 200 mg/dLBorderline High Cholesterol: 200-239 mg/dLHigh Cholesterol: greater than 239 mg/dL LDL Cholesterol Calculated 57 <100 mg/dL [facility] Comment:Desirable LDL: less than 100 mg/dLNear Optimal/Above Optimal LDL: 110- 129 mg/dLBorderline High LDL: 130-159 mg/dLHigh LDL: 160-189 mg/dLVery High LDL: greater than or equal to 190 mg/dL HDL Cholesterol 43 >40 mg/dL [facility] Comment:Desirable HDL: great er than 40 mg/dL Note: This HDL assay may give artificially low results in patients with liver disease. Blood Venous blood specimen / Unknown 01/08/2025 8:29 AM EDT 01/08/2025 3:28 PM EDT Vic Bradley MD LAB BLOOD ORDERABL ES Final Result Performing Organization Address [facility] Co de Phone Number [facility] [address] [place] [phone] [phone] * (ABNORMAL) Hepatitis Panel, General (10/27/2024 11:40 AM EDT) [facility] Hepatitis A IgM Nonreactive Nonreactive [facility] Comment:IgM antibodies to COOPER V not detected; does not exclude earlyacute or recovered HAV infection. ~Hepatitis B Surface Antibody REACTIVE Nonreactive [facility] Comment:REACTIVE: > 11.99 mI U/mL Hepatitis B Core Antibody Reactive Nonreactive [facility] Comment:Presumptive evidence of anti-HBc. Hepatitis C Antibody Reactive(A) Nonreactive [facility] Comment:Presumptive evidence of antibodies to HCV. Hepatitis B Surface Ag Negative Negative [facility] 10/27/2024 11:4 0 AM EDT 10/27/2024 11:40 AM EDT us Generic External Data Provider LAB BLOOD ORDERAB LES Final Result Performing Organization Address [facility] Co de Phone Number [facility] [address] [place] [phone] [phone] * Hepatitis C Viral RNA, Quantitative, Real-Time PCR (10/27/2024 11:40 AM EDT) [facility] Hepatitis C Viral Load <15 NOT DETECTED NOT DETECTED IU/mL [facility] HCV Log PCR <1.18 NOT DETECTED NOT DETECTED Log IU/mL [facility] Comment:For additional infor bel, please refer tohttp://education.[employer]/faq/QQC37d3(This link is being provided for informational/educational purposes only.)THIS TEST WAS PERFORMED AT:[employer] [place] [phone] ODEN MD 10/27/2024 11:4 0 AM EDT 10/27/2024 11:40 AM EDT us Generic External Data Provider LAB BLOOD ORDERAB LES Final Result [facility] [address] [place] [phone] * (ABNORMAL) CBC auto differential (10/27/2024 11:40 AM EDT) White Blood Count 5.5 4.8 - 10.8 X10*3/uL [facility] Red Blood Count 4.48(L) 4.60 - 5.80 X10*6/uL [facility] Hemoglobin 13.0(L) 14.0 - 18.0 g/dl [facility] Hematocrit 39.0(L) 42.0 - 52.0 % [facility] Mean Corpuscular Volume 87.1 80.0 - 98.0 fL [facility] Mean Corpuscular Hemoglobin 29.0 27.0 - 33.0 pg [facility] Mean Corpuscular HGB Conc 33.3 31.0 - 36.0 g/dl [facility] Red Cell Distribution Width 13.1 11.0 - 16.0 % [facility] Platelet Count 210 160 - 400 X10*3/uL [facility] Mean Platelet Volume 11.2 9.4 - 12.4 fL [facility] Neutrophils Percent Auto 62.6 45 - 73 % [facility] Imm Gran Pct Auto 0.2 0.0 - 0.4 % [facility] Lymphocytes Percent Auto 27.0 20 - 40 % [facility] Monocytes Percent Auto 8.7 2 - 11 % [facility] Eosinophils Percent Auto 1.1 0 - 4 % [facility] Basophils Percent Auto 0.4 0 - 2 % [facility] NRBC Pct Auto 0.0 0.0 - 0.2 /100WBC [facility] Neutrophils Absolute Auto 3.5 2.0 - 8.3 x10*3/uL [facility] Imm Gran Abs Auto 0.01 0.00 - 0.03 X10*3/uL [facility] Lymphocytes Absolute Auto 1.5 1.2 - 4.9 X10*3/uL [facility] Monocytes Absolute Auto 0.5 0.1 - 1.2 X10*3/uL [facility] Eosinophils Absolute Auto 0.1 0.0 - 0.4 X10*3/uL [facility] Basophils Absolute Auto 0.0 0.0 - 0.2 X10*3/uL [facility] NRBC Abs Auto 0.000 0.0 - 0.012 X10*3/uL [facility] 10/27/2024 11:4 0 AM EDT 10/27/2024 11:40 AM EDT us Generic External Data Provider LAB BLOOD ORDERAB LES Final Result [facility] [address] [place] [phone] * Hepatitis B Virus DNA, Quantitative, Real-Time PCR (10/27/2024 11:40 AM EDT) Hepatitis B Viral DNA Qn - cp NOT DETECTED NOT DETECTED Log IU/mL [facility] Comment:This test was perfor med using Real-Time Polymerase ChainReaction.Reportable Range: 10 IU/mL to 1,000,000,000 IU/mL.(1.00 Log IU/mL to 9.00 Log IU/mL).THIS TEST WAS PERFORMED AT:[employer] [place] [phone] ODEN MD Hepatitis B Viral DNA Qn-IU/mL NOT DETECTED NOT DETECTED IU/mL [facility] 10/27/2024 11:4 0 AM EDT 10/27/2024 11:40 AM EDT Generic External Data Provider LAB BLOOD ORDERAB LES Final Result Performing Organization Address [facility] Co de Phone Number [facility] [address] [place] [phone] * (ABNORMAL) Sed Rate by Modified Westergren (10/27/2024 11:40 AM EDT) Erythrocyte Sedimentation Rate 65(H) 0 - 15 MM/HR [facility] Comment:Patients with polycy themia and many hemoglobin abnormalitiesmay have depressed sed rates whereas patients with anemiamay have elevated sed rates. 10/27/2024 11:4 0 AM EDT 10/27/2024 11:40 AM EDT Generic External Data Provider LAB BLOOD ORDERAB LES Final Result Performing Organization Address [facility] Co de Phone Number [facility] [address] [place] [phone] * (ABNORMAL) Testosterone, Free (Dialysis) And Total, MS (10/27/2024 11:40 AM EDT) Testosterone, Total 200(A) 250 - 1100 ng/dL [facility] Comment:Men with clinically significant hypogonadal symptoms and testosterone valuesrepeatedly in the range of the 200-300 ng/dL or less, may benefit fromtestosterone treatment after adequate risk and benefits counseling.For additional information, please refer tohttps://education.[employer]/faq/DID084(This link is being provided for informational/educational purposes only.)(Note)This test was developed and its analytical performancecharacteristics have been determined by [employer]. It hasnot been cleared or approved by the FDA. This assay hasbeen validated pursuant to the CLIA regulations and isused for clinical purposes. Testosterone, Free 21.1(A) 35.0 - 155.0 pg/mL [facility] Comment:(Note)This test was developed and its analytical performancecharacteristics have been determined by [employer]. It hasnot been cleared or approved by the FDA. This assay hasbeen validated pursuant to the CLIA regulations and isused for clinical purposes.[facility] [id number] [address],[address] [place] [address] [phone] Tang Mariano MD, PhDTHIS TEST WAS PERFORMED AT:[id number] [place] [address] [place] [phone] MARIANO MD,PHD Blood Venous blood specimen / Unknown 10/27/2024 11:40 AM EDT 10/27/2024 11:40 AM EDT us Vic Bradley MD LAB BLOOD ORDERABL ES Final Result Performing Organization Address [facility]/ZIP Co de Phone Number [facility] [address] [place] [phone] * (ABNORMAL) C-reactive Protein (10/27/2024 11:40 AM EDT) C Reactive Protein 1.35(H) < or = 0.50 mg/dL [facility] 10/27/2024 11:4 0 AM EDT 10/27/2024 11:40 AM EDT us Generic External Data Provider LAB BLOOD ORDERAB LES Final Result Performing Organization Address [facility]/ZIP Co de Phone Number [facility] [address] [place] [phone] * (ABNORMAL) Comprehensive Metabolic Panel (10/27/2024 11:40 AM EDT) Sodium 142 135 - 145 mmol/L [facility] Potassium 4.2 3.3 - 5.1 mmol/L [facility] Chloride 103 96 - 108 mmol/L [facility] Carbon Dioxide 32(H) 22 - 29 mmol/L [facility] Anion Gap 11(L) 12 - 20 [facility] Urea Nitrogen (BUN) 11 9 - 16 mg/dL [facility] Creatinine, Serum 0.68 0.5 - 1.4 mg/dL [facility] Estimated Glomerular Filt Rate >60 [facility] Comment:Chronic Kidney Disea se: Estimated GFR < 60 mL/min/1.66t7Kwfflk Kidney Disease: Estimated GFR < 15 mL/min/1.73m2 Glucose 79 60 - 115 mg/dL [facility] Calcium 9.6 8.4 - 10.2 mg/dL [facility] Bilirubin, Total 0.4 0.0 - 1.0 mg/dL [facility] Aspartate Amino Transferase 51(H) 5 - 37 U/L [facility] Alanine Aminotransferase 69(H) 0 - 40 U/L [facility] Total Protein 8.6(H) 6.5 - 8.0 g/dL [facility] Albumin Level 4.3 3.5 - 5.0 g/dL [facility] Alkaline Phosphatase 119(H) 39 - 117 U/L [facility] 10/27/2024 11:4 0 AM EDT 10/27/2024 11:40 AM EDT us Generic External Data Provider LAB BLOOD ORDERAB LES Final Result [facility] [address] [place] [phone] * HIV-1/2 Antigen and Antibodies, Fourth Generation, with Reflexes (04/14/2024 9:28 AM EDT) HIV AB/AG Nonreactive Nonreactive [facility] Comment:HIV-1 p24 Ag and/or HIV-1/HIV-2 Ab not detected.A test result that is nonreactive does not exclude thepossibility of exposure to or infection with HIV-1 and/orHIV-2. Nonreactive results in this assay for individualswith prior exposure to HIV-1 and/or HIV-2 may be due toantigen and antibody levels that are below the limit ofdetection of this assay.The Mass Mosaic Alinity HIV Ag/Ab Combo assay result andsupplemental assay results should be interpreted inconjunction with the patient's clinical presentation,history and other laboratory results. If the results areinconsistent with clinical evidence, additional testing issuggested to confirm the result. 04/14/2024 9:28 AM EDT 04/14/2024 9:38 AM EDT Vic Bradley MD LAB BLOOD ORDERABL ES Final Result [facility] [address] [place] [phone] * FIT DNA/Cologuard Cancer Screening (11/09/2022 1:46 PM EDT) Stool Historical Provider HEALTH MAINTENANCE Final Result from Last 3 Months or Most Recently Relevant to Health Maintenance Insurance C3 Care Teams Collections Representative Relationship Specialty Start Date End Date Vic Benoit MD [address] [place] [phone] PCP - General Internal Medicine 11/21/19
--- OUTSIDE RECORDS SUMMARY | 2025-01-10 11:03 | XMS_ITS | Patient Health Record ---
Author Organization [facility] Address [address], [place] [phone] Care Team Providers Care Pc Maintenance Technician Name Role Phone [employer] - DO NOT USE, Mail Pickup Primary Care Provider Unavailable Gita Kwong Unavailable [phone] Reason For Referral No Information Encounters Encounter Location Date Provider Diagnosis [facility] [address] [place] [address] [phone] 01/27/2024 Gita Kwong [facility] [address] [place] [address] [phone] 02/25/2024 Gita Kwong [facility] [address] [place] [address] [phone] 02/22/2024 Gita Kwong Plan Of Treatment No Information Insurance Providers Payer Name Payer Address Payer Phone Subscriber Number Group Number Insured Name Patient Relationship to Insured Coverage Start Date Coverage End Date [facility] [employer] [address] [place] [id number] Ferny Lim Self - patient is the insured 3 3
[2025-01-11 05:16] LABS: ~HepC Num1 13.61 S/CO (0.00-0.79); ~Hepatitis C Antibody Reactive (Nonreactive)
[2025-01-14 10:28] LABS: HCV Log PCR <1.18 NOT DETECTED Log IU/mL (NOT DETECTED); HepC Viral Load <15 NOT DETECTED IU/mL (NOT DETECTED)
== END 2025-01-10 10:28 | disposition home or self-care (01) ==
LOC: HO.CHCLDS 10:27
PROVIDERS: Visit Provider Family Medicine
DX: R76.8 Other specified abnormal immunological findings in serum (principal)
CPT/HCPCS: 36415; 86803; 87522

== ENCOUNTER 2025-02-02 08:11 | Outpatient (REF) | payer MEDICAID, SELFPAY ==
--- OUTSIDE RECORDS SUMMARY | 2014-04-23 10:17 | XMS_ITS | Continuity of Care Document ---
Author Organization [facility] Address [address] [place] [address] Phone Care Team Providers Care Quality Control Lab Technician Name Role Phone Unavailable Unavailable Unavailable Medications [...] route every day 14 MG - Active lisinopril 20 mg tablet take 1 tablet by oral route every day 20 MG - Active prednisone 10 mg tablet take 1 tablet by oral route every day 10 MG - Active HYDROXYZINE HCL (unknown strength) [...] Minutes 3 Psych Dx Eval OFFICE/OUTPATIENT VISIT, [facility] Advance Directives Directive Yes / No Effective Date File Name No Information Encounters Encounter Description Practice Location Reason(s) For Visit Diagnoses Date Provider Providers Copied on Encounter [facility], [address] [place] [address], [address], tel:[phone] [facility] Discharge Planning (chief complaint) ALCOHOL DEPENDENCEOpi oid type dependence, in remission 4 No Information GROUP PSYCHOTHERAPY [facility], [address] [place] [address], [address], tel:[phone] [facility] Opioid type dependence, in remission 4 No Information GROUP PSYCHOTHERAPY [facility], [address] [place], [address], [place] tel:[phone] [facility] Opioid type dependence, in remission 4 No Information [facility], [address] [place], [address], [place] tel:[phone] [facility] No Information 4 No Information OFFICE/OUTPATI ENT VISIT, [facility], [address] [place] [address], [address], tel:[phone] [facility] Opioid type dependence, in remissionOpio id type dependence, unspecified use 201 4 No Information GROUP PSYCHOTHERAPY [facility], [address] [place], [address], [place] tel:[phone] [facility] Opioid type dependence, unspecified use October-3 0-201 4 No Information GROUP PSYCHOTHERAPY [facility], [address] [place], [address], [place] tel:[phone] [facility] Opioid type dependence, in remission October- 6- 4 No Information [facility] Family 30 Minutes [facility], [address] [place], [address], [place] tel:[phone] [facility] Opioid type dependence, in remission October- 3- 4 No Information GROUP PSYCHOTHERAPY [facility], [address] [place], [address], [place] tel:[phone] [facility] Opioid type dependence, unspecified use Sep-2 5-201 4 No Information GROUP PSYCHOTHERAPY [facility], [address] [place], [address], [place] tel:[phone] [facility] Opioid type dependence, unspecified use Apr-1 1-201 4 No Information Ps[facility]TX[facility] And Family 30 Minutes [facility], [place], [address], [place] tel:[phone] [facility] Opioid type dependence, unspecified use Mar-2 4-201 4 No Information GROUP PSYCHOTHERAPY [facility], [place], [address], [place] tel:[phone] [facility] Opioid type dependence, unspecified use Mar-2 1-201 4 No Information OFFICE/OUTPATI ENT VISIT, EST [facility], [address] [place], [address], [place] tel:[phone] [facility] substance abuse (chief complaint) Opioid type dependence, in remission Aug-1 0-201 4 No Information GROUP PSYCHOTHERAPY [facility], [place], [address], [place] tel:[phone] [facility] Opioid type dependence, unspecified use Mar-0 7-201 4 No Information [facility], [place], [address], [place] tel:[phone] [facility] DepressionOpi oid type dependence, unspecified useMajor depressive affective disorder, recurrent episode, unspecified degree 4 Case Management [facility]. . [facility] Family 30 Minutes [facility], [address] [place], [address], [place] tel:[phone] [facility] No Information 4 No Information GROUP PSYCHOTHERAPY [facility], [address] [place], [address], [place] tel:[phone] [facility] Opioid type dependence, unspecified use 4 No Information GROUP PSYCHOTHERAPY [facility], [address], [place], [facility], [place] tel:[phone] [facility] Opioid type dependence, unspecified use 4 No Information OFFICE/OUTPATI ENT VISIT, [facility], [address], [place], [facility], [place] tel:[phone] [facility] substance abuse (chief complaint) Opioid type dependence, unspecified use 4 No Information PsyTXPT And Family 30 Minutes [facility], [address] [place], [address], [place] tel:[phone] [facility] No Information 4 No Information GROUP PSYCHOTHERAPY [facility], [address] [place] [address], [facility], [place] tel:[phone] [facility] Opioid type dependence, unspecified use 3 No Information [facility], [address] [place] [address], [facility], [place] tel:[phone] [facility] Major depressive affective disorder, recurrent episode, unspecified degreeOpioid type dependence, unspecified useDepression 3 Case Management [facility]. . GROUP PSYCHOTHERAPY [facility], [address] [place] [address], [facility], [place] tel:[phone] [facility] DepressionOpi oid type dependence, unspecified useMajor depressive affective disorder, recurrent episode, unspecified degree 3 No Information OFFICE/OUTPATI ENT VISIT, [facility], [address] [place], [address], [place] tel:[phone] [facility] substance abuse (chief complaint)d epression (chief complaint) Opioid type dependence, unspecified useDepression 3 No Information PsyTXPT And Family 30 Minutes [facility], [address] [place], [address], [place] tel:[phone] [facility] No Information 0 3 No Information GROUP PSYCHOTHERAPY [facility], [address] [place], [address], [place] tel:[phone] [facility] Opioid type dependence, unspecified use 0 3 No Information [facility], [address] [place], [address], [place] tel:[phone] [facility] Opioid type dependence, unspecified use 3 No Information PsyTXPT And Family 30 Minutes [facility], [address] [place], [address], [place] tel:[phone] [facility] No Information 2 3 No Information GROUP PSYCHOTHERAPY [facility], [address] [place], [address], [place] tel:[phone] [facility] Opioid type dependence, unspecified use 3 No Information [facility], [address] [place], [address], [place] tel:[phone] [facility] No Information 3 No Information [facility], [address] [place], [address], [place] tel:[phone] [facility] Opioid type dependence, unspecified use 3 No Information PsyTXPT And Family 30 Minutes [facility], [address] [place], [address], [place] tel:[phone] [facility] No Information Mar-0 3 No Information [facility], [address] [place], [address], [place] tel:[phone] [facility] Opioid type dependence, unspecified use Oct-0 4-201 3 No Information Psych Diag Eval W/Med Serv [facility], [address] [place] [address], [address], [place] tel:[phone] [facility] depression (chief complaint) DepressionOpi oid type dependence, unspecified use 3 No Information GROUP PSYCHOTHERAPY [facility], [address] [place] [address], [address], [place] tel:[phone] [facility] Opioid type dependence, unspecified use 3 No Information PsyTXPT And Family 30 Minutes [facility], [address] [place] [address], [address], [place] tel:[phone] [facility] No Information 3 No Information GROUP PSYCHOTHERAPY [facility], [address] [place] [address], [address], [place] tel:[phone] [facility] Opioid type dependence, unspecified use 3 No Information PsyTXPT And Family 30 Minutes [facility], [address] [place] [address], [address], [place] tel:[phone] [facility] No Information 3 No Information PsyTXPT And Family 30 Minutes [facility], [address] [place] [address], [address], [place] tel:[phone] [facility] No Information 3 No Information Psych Dx Eval [facility], [address] [place] [address], [address], [place] tel:[phone] [facility] depression (chief complaint)s ubstance abuse (chief complaint) Major depressive affective disorder, recurrent episode, unspecified degreeOpioid type dependence, unspecified use 3 No Information OFFICE/OUTPATI ENT VISIT, [facility], [address] [place] [address], [address], [place] tel:[phone] [facility] Adult Medicine Beto Med refill (chief complaint) Hypertension, BenignDepress ion 3 No Information Family History Family Member Type Diagnosis Age At Onset No Information Payers Payer name Insurance type Covered constitution party ID Authoriza titoni(s) ETELVINA Janice White [id number] Social History Type Description Quantity Date Captured [...] 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 substance abuse He reported that he was clean and sober and very busy with his work. He is feeling frustrated that he has to take time off from work to attend appointments and groups at [facility] and says that he wants to taper [...] the last time he drank. During the.. depression This is a follow up visit. [...] well controlled with low dose of celexa.. 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 Clark) at [facility] for tx of depression. He has been on Celexa for over a year and has found this very helpful for his depression and anxiety symptoms. One prior psych admission in [place] for depression after he cut himself.. substance abuse The symptoms are reported as being mild. Mr Lim is on the [employer] program on Suboxone depression This is an initi al visit. The patient presents with depressed mood. The patient's risk factors include drug abuse. The patient denies any aggravating factors. Interventions the patient has tried have not provided any relief. Med refill (comments) +h/o Hep C --no meds due to depression. 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 Uses prednisone for flares. Is currently without symptoms. Med refill Former PCP: Aurea Manriquez. Last medical visit: 6 months ago. Was also followed by mental health (clinician and Psych) at [facility] as well. Plans to transfer care to [facility] due to recent move. Increased BP noted. No BP meds x 3 weeks. Functional Status Date Functional Assessmen t No Information Instructions Date Instruction Additional Infor bel Related to Opioi d type dependence, unspecified use Assessments Type Assessment Date assessment ALCOHOL DEPENDENCE assessment Opioid type dependence, in remis taina Patient Care Teams Name Effective Dates (start - stop) Status Members No Information
--- OUTSIDE RECORDS SUMMARY | 2025-02-02 08:21 | XMS_ITS | Clinical Summary ---
Author Organization [employer] Address [address] [place] [address] 7[address] [place] [address] Care Team Providers Care Outsole Scheduler Name Role Phone Vic Benoit MD Primary Care Prov ider Allergies No known active allergies Medications methadone (Dolophine) 5 MG/5ML solution Take 125 mL by mouth in the morning. [facility] Active cloNIDine (Catapres) 0.1 MG tablet Take [...] day. 90 tablet 3 01/10/20 25 Active senna-docusate sodium (Senokot-S) 8.6-50 MG tablet Take 1 tablet by mouth Once per day. 025 Discontinued(Re order (will not trigger notification to Pharmacy)) Active Problems Problem Noted Date Diagnosed Date Hepatitis C virus infection cured after antiviral drug therapy 01/23/2025 Chronic hepatitis C virus genotype 3 infection 0 01/23/2025 Low libido 09/27/2024 Assessment & Plan (09/27/2024 [...] Encounters Date Type Department Care Team Description 01/23/2025 9:05 AM EDT Telemedicine [facility] [address] [place] [phone] Gladis Bhagat MD Chronic hepatitis C virus genotype 3 infection (CMS/HCC) (Primary Dx); Hepatitis C virus infection cured after antiviral drug therapy 01/23/2025 Travel 01/19/[address] [facility] [address] [place] [phone] Araceli Miller 01/15/2025 Results Follow-Up [address] [phone] Gladis Bhagat MD Hepatitis C Antibody with Reflex to HCV, RNA, Quantitative, Real-Time PCR, Hepatitis C Viral RNA, Quantitative, Real-Time PCR 01/10/2025 Orders Only [address] [address] Gladis Bhagat MD 01/08/2025 Results Follow-Up [facility] [address] [place] [address] Vic Benoit MD Vitamin B12 (Cobalamin) and Folate Panel, Serum, Iron And Total Iron Binding Capacity, Lipid Panel, Standard, Testosterone, Free (Dialysis) And Total, MS 12/22/2024 Orders Only [facility] [address] [place] [address] Shani Hoyt MD 12/21/2024 10:15 AM EDT Telemedicine [facility] [address] [place] [address] Vic Benoit MD Low libido (Primary Dx); Primary hypertension 12/21/2024 Travel 12/20/[address] [facility] [address] [place] [address] Vic Benoit MD chart prep 12/18/[address] [facility] [address] [place] [address] Yanna Leahy, SONI Hepatitis C antibody positive in blood (Primary Dx) 12/06/2024 Telephone [facility] [address], [place] [phone] Vic Benoit MD Lab Orders from Last 3 Months Immunizations Immunization Administration [...] your housing situation today? I have edilberto emily 09/27/[address] you li [...] Info) Description 03/26/2025 9:30 AM EDT Telemedicine [facility] [address] [place] [address] Vic Benoit MD [address] [place] [address] Health Maintenance Due Date Last Done Comments CT Colonography 1965 Colonoscopy 1965 FIT 1965 FOBT 1965 Sigmoidoscopy 1965 Disability Screening 1965 Hepatitis [...] Name Priority Date/Time Associated Diagnosis Comments HEPATITIS C VIRAL RNA, QUANTITATIVE, REAL-TIME PCR Routine 01/10/2025 10:28 AM EDT HEPATITIS C AB W/REFL TO HCV RNA, QN, PCR Routine 01/10/2025 10:28 AM EDT LIPID PANEL, STANDARD Routine 01/08/2025 8:29 AM EDT Primary hypertension IRON AND TOTAL IRON BINDING CAPACITY Routine 01/08/2025 8:29 AM EDT Primary hypertension VITAMIN B12/FOLATE, SERUM PANEL Routine 01/08/2025 8:29 AM EDT Primary hypertension TESTOSTERONE, FREE (DIALYSIS) AND TOTAL,MS Routine 01/08/2025 8:29 AM EDT Low libido HIV 1/2 ANTIGEN/ANTIBODY, FOURTH GENERATION W/RFL Routine 04/14/2024 9:28 AM EDT Hepatitis C antibody positive in blood HM FIT DNA/COLOGUARD CANCER SCREENING Routine 11/09/2022 1:46 PM EDT from Last 3 Months or Most Recently Relevant to Health Maintenance Results * Hepatitis C Viral RNA, Quantitative, Real-Time PCR (01/10/2025 10:28 AM EDT) Hepatitis C Viral Load <15 NOT DETECTED NOT DETECTED IU/mL [facility] HCV Log PCR <1.18 NOT DETECTED NOT DETECTED Log IU/mL [facility] Comment:For additional infor mation, please refer tohttp://education.MailFrontier/faq/YTA96g4(This link is being provided for informational/educational purposes only.)THIS TEST WAS PERFORMED AT:[facility] [place] [id number] ODEN MD 01/10/2025 10:2 8 AM EDT 01/11/2025 2:26 PM EDT Gladis Bhagat MD LAB BLOOD ORDERABLES Final R esult Performing Organization Address [facility]/ZIP Co de Phone Number [facility] [address] [place] [phone] * (ABNORMAL) Hepatitis C Antibody with Reflex to HCV, RNA, Quantitative, Real- Time PCR (01/10/2025 10:28 AM EDT) Hepatitis C Antibody Reactive( A) Nonreactive [facility] Comment:Presumptive evidence of antibodies to HCV. 01/10/2025 10:2 8 AM EDT 01/10/2025 2:46 PM EDT Gladis Bhagat MD LAB BLOOD ORDERABLES Final R esult Performing Organization Address [facility] Co de Phone Number [facility] [address] [place] [phone] * Vitamin B12 (Cobalamin) and Folate Panel, Serum (01/08/2025 8:29 AM EDT) Vitamin B12 309 200 - 900 pg/mL [facility] Comment:NORMAL 200-900 PG/ML INDETERMINATE 160-199 PG/ML DEFICIENT < 160 PG/ML Folate 6.6 > or = 4.0 ng/mL [facility] Comment:Reference Values:> o r = [...] ORDERABL ES Final Result Performing Organization Address [facility]/ZIP Co de Phone Number [facility] [address] [place] [phone] * (ABNORMAL) Iron And Total Iron Binding Capacity (01/08/2025 8:29 AM EDT) Iron 33(L) 45 - 160 mcg/dL [facility] Total Iron Binding Capacity 230 228 - 428 mcg/dL [facility] Percent Iron Saturation 14(L) 15 - 50 % [facility] Unsaturated Iron Binding 197 ug/dL [facility] Blood Venous blood specimen / Unknown 01/08/2025 8:29 AM EDT 01/08/2025 3:28 PM EDT us Vic Bardley MD LAB BLOOD ORDERABL ES Final Result [facility] [address] [place] [address] [phone] * (ABNORMAL) Testosterone, Free (Dialysis) And Total, MS (01/08/2025 8:29 AM EDT) Testosterone, Total 223(A) 250 - 1100 ng/dL [facility] Comment:For additional infor bel, please refer tohttp://education.MailFrontier/faq/BtwujVrmhmjbmulwsZAKKPYNOL250(This link is being provided for informational/educational purposes only.)This test was developed and its analytical performancecharacteristics have been determined by [employer] [facility] [employer] [place]. It hasnot been cleared or approved by the U.S. Food and DrugAdministration. This assay has been validated pursuantto the CLIA regulations and is used for clinicalpurposes. Testosterone, Free 19.0(A) 35.0 - 155.0 pg/mL [facility] Comment:This test was develo ped and its analytical performancecharacteristics have been determined by [facility] [employer] [facility] [place]. It hasnot been cleared or approved by the U.S. Food and DrugAdministration. This assay has been validated pursuantto the CLIA regulations and is used for clinicalpurposes.THIS TEST WAS PERFORMED AT:[employer] [id number] [place] [id number] LUCERO MD,PHD Blood Venous blood specimen / Unknown 01/08/2025 8:29 AM EDT 01/08/2025 3:09 PM EDT us Vic Bradley MD LAB BLOOD ORDERABL ES Final Result Performing Organization Address [facility] de Phone Number [facility] [address] [place] [phone] * Lipid Panel, Standard (01/08/2025 8:29 AM EDT) Triglycerides 55 <150 mg/dL [facility] Comment:Desirable Triglyceri de: less than 150 mg/dLBorderline High Triglyceride 150-199 mg/dLHigh Triglyceride: 200-499 mg/dLVery High Triglyceride: greater than or equal to 5OO mg/dL Cholesterol 111 <200 mg/dL [facility] Comment:Desirable Cholestero l: less than 200 mg/dLBorderline High Cholesterol: 200-239 mg/dLHigh Cholesterol: greater than 239 mg/dL LDL Cholesterol Calculated 57 <100 mg/dL [facility] Comment:Desirable LDL: less than 100 mg/dLNear Optimal/Above Optimal LDL: 110- 129 mg/dLBorderline High LDL: 130-159 mg/dLHigh LDL: 160-189 mg/dLVery High LDL: greater than or equal to 190 mg/dL HDL Cholesterol 43 >40 mg/dL [facility] Comment:Desirable HDL: great er than 40 mg/dL Note: This HDL assay may give artificially low results in patients with liver disease. Blood Venous blood specimen / Unknown 01/08/2025 8:29 AM EDT 01/08/2025 3:28 PM EDT us Vic Bradley MD LAB BLOOD ORDERABL ES Final Result Performing Organization Address [facility] Co de Phone Number [facility] [address] [place] [phone] * HIV-1/2 Antigen and Antibodies, Fourth Generation, with Reflexes (04/14/2024 9:28 AM EDT) HIV AB/AG Nonreactive Nonreactive [facility] Comment:HIV-1 p24 Ag and/or HIV-1/HIV-2 Ab not detected.A test result that is nonreactive does not exclude thepossibility of exposure to or infection with HIV-1 and/orHIV-2. Nonreactive results in this assay for individualswith prior exposure to HIV-1 and/or HIV-2 may be due toantigen and antibody levels that are below the limit ofdetection of this assay.The [employer] HIV Ag/Ab Combo assay result andsupplemental assay results should be interpreted inconjunction with the patient's clinical presentation,history and other laboratory results. If the results areinconsistent with clinical evidence, additional testing issuggested to confirm the result. 04/14/2024 9:28 AM EDT 04/14/2024 9:38 AM EDT Vic Bradley MD LAB BLOOD ORDERABL ES Final Result [facility] [address] [place] [phone] [phone] * FIT DNA/Cologuard Cancer Screening (11/09/2022 1:46 PM EDT) Stool us Historical Provider HEALTH MAINTENANCE Final Result from Last 3 Months or Most Recently Relevant to Health Maintenance Insurance C3 Care Teams Outsole Scheduler Relationship Specialty Start Date End Date Vic Benoit MD [address] [place] [phone] PCP - General Internal Medicine 11/21/19
--- OUTSIDE RECORDS SUMMARY | 2025-02-02 08:21 | XMS_ITS | Patient Health Record ---
Author Organization [facility] Address [address] [place], [place] [phone] Care Team Providers Care Refractory Tile Helper Name Role Phone [employer] - DO NOT USE, Mail Pickup Primary Care Provider Unavailable Gita Kwong Unavailable Reason For Referral No Information Encounters Encounter Location Date Provider Diagnosis [facility] [address] [place] [phone] 02/25/2024 Gita Kwong [facility] [phone] 02/22/2024 Gita Kwong Plan Of Treatment No Information Insurance Providers Payer Name Payer Address Payer Phone Subscriber Number Group Number Insured Name Patient Relationship to Insured Coverage Start Date Coverage End Date [employer] [employer] [address] [place] [phone] [phone] [id number] Ferny Lim Self - patient is the insured 3 3
[2025-02-08 17:09] LABS: Testosterone, Free 14.2 pg/mL (35.0-155.0)
== END 2025-02-02 08:12 | disposition home or self-care (01) ==
LOC: HO.CHCLDS 08:11
PROVIDERS: Visit Provider Internal Medicine
DX: R68.82 Decreased libido (principal)
CPT/HCPCS: 36415; 84402; 84403

== ENCOUNTER 2025-03-06 08:50 | Outpatient (REF) | payer MEDICAID, SELFPAY ==
[2025-03-06 12:59] LABS: MANUAL DIFF FLAG NO
[2025-03-06 13:22] LABS: Hematocrit 38.1 % (42.0-52.0); Hemoglobin 12.5 g/dl (14.0-18.0); Imm Gran Abs Auto 0.02 X10*3/uL (0.00-0.03); Imm Gran Pct Auto 0.4 % (0.0-0.4); Lymphocytes Absolute Auto 1.5 X10*3/uL (1.2-4.9); Mean Corpuscular HGB Conc 32.8 g/dl (31.0-36.0); Mean Corpuscular Hemoglobin 28.2 pg (27.0-33.0); Mean Corpuscular Volume 86.0 fL (80.0-98.0); NRBC Abs Auto 0.000 X10*3/uL (0.0-0.012); NRBC Pct Auto 0.0 /100WBC (0.0-0.2); Platelet Count 206 X10*3/uL (160-400); Red Blood Count 4.43 X10*6/uL (4.60-5.80); White Blood Count 5.6 X10*3/uL (4.8-10.8)
[2025-03-06 13:56] LABS: Alanine Aminotransferase 46 U/L (0-40); Albumin Level 4.6 g/dL (3.5-5.0); Alkaline Phosphatase 110 U/L (39-117); Anion Gap 13 (12-20); Aspartate Amino Transferase 36 U/L (5-37); Blood Urea Nitrogen 16 mg/dL (9-16); Calcium 9.5 mg/dL (8.4-10.2); Carbon Dioxide 29 mmol/L (22-29); Chloride 103 mmol/L (96-108); Estimated Glomerular Filt Rate > 60; Potassium 5.0 mmol/L (3.3-5.1); Sodium 140 mmol/L (135-145); Total Protein 8.3 g/dL (6.5-8.0)
== END 2025-03-06 08:51 | disposition home or self-care (01) ==
LOC: HO.HKASLDS 08:50
PROVIDERS: PCP Internal Medicine; Visit Provider Student in an Organized Health Care Education/Training Program
DX: K12.0 Recurrent oral aphthae (principal); Z79.899 Other long term (current) drug therapy
CPT/HCPCS: 36415; 80053; 85025; 85652; 86140; 99212

== ENCOUNTER 2025-03-06 08:50 | Outpatient (AMB) | payer MEDICAID, SELFPAY ==
--- OUTSIDE RECORDS SUMMARY | 2014-04-23 10:17 | XMS_ITS | Continuity of Care Document ---
Author Organization [employer] [facility] Address [address] [place] [address] Phone Care Team Providers Care Rn Radiation Name Role Phone Unavailable Unavailable Unavailable Medications Medication Instructions Dosage Effective Dates (start - stop) Status Comments Suboxone 2 mg-0.[address] 2 film by sublingual route every day allow to dissolve slowly in mouth without chewing or swallowing 4 MG - Active nicotine 14 mg/24 hr daily transdermal patch apply 1 patch by transdermal route every day 14 MG - Active prednisone 10 mg tablet take 1 tablet by oral route every day 10 MG - Active lisinopril 20 mg tablet take 1 tablet by oral route every day 20 MG - Active HYDROXYZINE HCL (unknown strength) Not Available - Active PERPHENAZINE (unknown strength) Not Available - No Longer Active Procedures Procedure Date GROUP PSYCHOTHERAPY GROUP PSYCHOTHERAPY PATIENT NOT SEEN OFFICE/OUTPATIENT VISIT, EST GROUP PSYCHOTHERAPY GROUP PSYCHOTHERAPY [facility] 30 Minutes 4 GROUP PSYCHOTHERAPY GROUP PSYCHOTHERAPY [facility] 30 Minutes 4 GROUP PSYCHOTHERAPY OFFICE/OUTPATIENT VISIT, EST GROUP PSYCHOTHERAPY NO CHARGE NO CHARGE [facility] 30 Minutes 4 GROUP PSYCHOTHERAPY GROUP PSYCHOTHERAPY OFFICE/OUTPATIENT VISIT, EST [facility] 30 Minutes 4 GROUP PSYCHOTHERAPY NO CHARGE GROUP PSYCHOTHERAPY OFFICE/OUTPATIENT VISIT, EST [facility] 30 Minutes 3 GROUP PSYCHOTHERAPY NO CHARGE [facility] 30 Minutes 3 GROUP PSYCHOTHERAPY NO CHARGE NO CHARGE [facility] 30 Minutes 3 NO CHARGE Psych Diag Eval W/Med Serv GROUP PSYCHOTHERAPY [facility] 30 Minutes 3 GROUP PSYCHOTHERAPY [facility] 30 Minutes 3 [facility] 30 Minutes 3 Psych Dx Eval OFFICE/OUTPATIENT VISIT, [facility] Advance Directives Directive Yes / No Effective Date File Name No Information Encounters Encounter Description Practice Location Reason(s) For Visit Diagnoses Date Provider Providers Copied on Encounter [facility] [place], [address] [place] [address], [address], tel:[phone] [facility] Discharge Planning (chief complaint) ALCOHOL DEPENDENCEOpi oid type dependence, in remission 4 No Information GROUP PSYCHOTHERAPY [facility] [place], [address] [place] [address], [address], tel:[phone] [facility] Opioid type dependence, in remission 4 No Information GROUP PSYCHOTHERAPY [facility] [place], [address] [place], [address], [place] tel:[phone] [facility] Opioid type dependence, in remission 4 No Information [facility] [place], [address] [place], [address], [place] tel:[phone] [facility] No Information 4 No Information OFFICE/OUTPATI ENT VISIT, Formerly [facility], [facility], [address] [place] [address], [address], tel:[phone] [facility] Opioid type dependence, in remissionOpio id type dependence, unspecified use 201 4 No Information GROUP PSYCHOTHERAPY Formerly [facility], [address] [place], [address], [place] tel:[phone] [facility] Opioid type dependence, unspecified use October-3 0-201 4 No Information GROUP PSYCHOTHERAPY [facility], [address] [place], [address], [place] tel:[phone] [facility] Opioid type dependence, in remission October- 6- 4 No Information [facility] 30 Minutes [facility], [address] [place], [address], [place] tel:[phone] [facility] Opioid type dependence, in remission October- 3- 4 No Information GROUP PSYCHOTHERAPY [facility], [address] [place], [address], [place] tel:[phone] [facility] Opioid type dependence, unspecified use Sep-2 5-201 4 No Information GROUP PSYCHOTHERAPY [facility], [address] [place], [address], [place] tel:[phone] [facility] Opioid type dependence, unspecified use Apr-1 1-201 4 No Information [facility] 30 Minutes [facility], [place], [address], [place] tel:[phone] [facility] Opioid type dependence, unspecified use Mar-2 4-201 4 No Information GROUP PSYCHOTHERAPY [facility], [place], [address], [place] tel:[phone] [facility] Opioid type dependence, unspecified use Mar-2 1-201 4 No Information OFFICE/OUTPATI ENT VISIT, EST [facility], [address] [place], [address], [place] tel:[phone] [facility] substance abuse (chief complaint) Opioid type dependence, in remission Aug-1 0-201 4 No Information GROUP PSYCHOTHERAPY [facility], [place], [address], [place] tel:[phone] [facility] Opioid type dependence, unspecified use Mar-0 7-201 4 No Information [facility], [place], [address], [place] tel:[phone] [facility] DepressionOpi oid type dependence, unspecified useMajor depressive affective disorder, recurrent episode, unspecified degree 4 Case Management [facility]. . [facility] 30 Minutes [facility], [address] [place], [address], [place] tel:[phone] [facility] No Information 4 No Information GROUP PSYCHOTHERAPY [facility], [address] [place], [address], [place] tel:[phone] [facility] Opioid type dependence, unspecified use 4 No Information GROUP PSYCHOTHERAPY [facility], [address], [place], [facility], [place] tel:[phone] [facility] Opioid type dependence, unspecified use 4 No Information OFFICE/OUTPATI ENT VISIT, Formerly [facility], [facility], [address], [place], [facility], [place] tel:[phone] [facility] substance abuse (chief complaint) Opioid type dependence, unspecified use 4 No Information [facility] 30 Minutes [facility], [address] [place], [address], [place] tel:[phone] [facility] No Information 4 No Information GROUP PSYCHOTHERAPY [facility], [address] [place] [address], [facility], [place] tel:[phone] [facility] Opioid type dependence, unspecified use 3 No Information [facility], [address] [place] [address], [facility], [place] tel:[phone] [facility] Major depressive affective disorder, recurrent episode, unspecified degreeOpioid type dependence, unspecified useDepression 3 Case Management [facility]. . GROUP PSYCHOTHERAPY [facility], [address] [place] [address], [facility], [place] tel:[phone] [facility] DepressionOpi oid type dependence, unspecified useMajor depressive affective disorder, recurrent episode, unspecified degree 3 No Information OFFICE/OUTPATI ENT VISIT, [facility]ly [facility], [facility], [address] [place], [address], [place] tel:[phone] [facility] substance abuse (chief complaint)d epression (chief complaint) Opioid type dependence, unspecified useDepression 3 No Information [facility] 30 Minutes [facility], [address] [place], [address], [place] tel:[phone] [facility] No Information 0 3 No Information GROUP PSYCHOTHERAPY [facility], [address] [place], [address], [place] tel:[phone] [facility] Opioid type dependence, unspecified use 0 3 No Information [facility], [address] [place], [address], [place] tel:[phone] [facility] Opioid type dependence, unspecified use 3 No Information [facility] 30 Minutes [facility], [address] [place], [address], [place] tel:[phone] [facility] No Information 2 3 No Information GROUP PSYCHOTHERAPY [facility], [address] [place], [address], [place] tel:[phone] [facility] Opioid type dependence, unspecified use 3 No Information [facility], [address] [place], [address], [place] tel:[phone] [facility] No Information 3 No Information [facility], [address] [place], [address], [place] tel:[phone] [facility] Opioid type dependence, unspecified use 3 No Information [facility] 30 Minutes [facility], [address] [place], [address], [place] tel:[phone] [facility] No Information Mar-0 3 No Information [facility], [address] [place], [address], [place] tel:[phone] [facility] Opioid type dependence, unspecified use Oct-0 4-201 3 No Information Psych Diag Eval W/Med Serv [facility], [address] [place] [address], [address], [place] tel:[phone] [facility] depression (chief complaint) DepressionOpi oid type dependence, unspecified use 3 No Information GROUP PSYCHOTHERAPY [facility], [address] [place] [address], [address], [place] tel:[phone] [facility] Opioid type dependence, unspecified use 3 No Information [facility] 30 Minutes [facility], [address] [place] [address], [address], [place] tel:[phone] [facility] No Information 3 No Information GROUP PSYCHOTHERAPY [facility], [address] [place] [address], [address], [place] tel:[phone] [facility] Opioid type dependence, unspecified use 3 No Information [facility] 30 Minutes [facility], [address] [place] [address], [address], [place] tel:[phone] [facility] No Information 3 No Information [facility] 30 Minutes [facility], [address] [place] [address], [address], [place] tel:[phone] [facility] No Information 3 No Information Psych Dx Eval [facility], [address] [place] [address], [address], [place] tel:[phone] [facility] depression (chief complaint)s ubstance abuse (chief complaint) Major depressive affective disorder, recurrent episode, unspecified degreeOpioid type dependence, unspecified use 3 No Information OFFICE/OUTPATI ENT VISIT, [facility], [address] [place] [address], [address], [place] tel:[phone] [facility] Adult Medicine [facility] Med refill (chief complaint) Hypertension, BenignDepress ion 3 No Information Family History Family Member Type Diagnosis Age At Onset No Information Payers Payer name Insurance type Covered green party ID Authoriza titoni(s) ETELVINA Janice White [id number] Social History Type Description Quantity Date Captured Comments Alcohol Use Details Unknown Caffeine Use Details Unknown Tobacco Use Status Smoking Status No Information Sex Male Chief Complaint And Reason For Visit From encounter dated '04/23/2014 14:17'. Discharge Planning (chief complaint) Reason For Referral Reason For Referral No Information Plan Of Treatment Date Type Action Status Goal Tobacco cessation counseling completed History Of Present Illness Encounter Date Complaint History Of Prese nt Illness Discharge Planning substance abuse He says that he has been doing well lately and his mood is good. He reports no current anxiety or depression symptoms and he is sleeping well at night. He talked about his medical problems and the treatments that will hopefully be available soon to better treat his illness. He has stopped taking the prednisone he had been prescribed because he says it was not helpful to him. He reports that he remains clean and has been sober for 2 months and 8 days. He says that he did a lot of reflecting after our last appointment and realized that drinking was a problem for him and something he knew he needed to stop. He feels much better now that he is not drinking and says that his health has improved as well as his energy level. He had no problems with the lower dose of suboxone (12mg) and since he wants to get off this medication in the next 6-8 months, he plans to lower his dose again in 1 or 2 months. 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 substance abuse He reported that he was clean and sober and very busy with his work. He is feeling frustrated that he has to take time off from work to attend appointments and groups at [facility] and says that he wants to taper off suboxone soon so that he is not obligated to come to treatment. He says that he has not been attending any NA or other recovery meetings and doesn't feel that he needs to. He says that he can do fine 'on his own' and doesn't feel that he needs to part of a recovery community. He feels work is his main priority right now and admits that he doesn't have time for much other than work and sleep at this point. I expressed my concern that he is not making his recovery more of a priority right now and told him that I am concerned about his high risk for relapsing. I also asked him about his alcohol use, since a recent utox was positive for alcohol. He initially said that he only drinks '3 or 4 times a year' and said that he couldn't remember the last time he drank. During the.. substance abuse He reports that he remains clean and sober and doing well on suboxone. He feels that this medication is working well to control his cravings to use. He has no reported side effects. He is attending weekly recovery meetings and is very committed to making changes in his life that will allow him to remain clean. 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 He says that his relationship with his family are also gradually starting to improve. We talked about his plans for gradually tapering off suboxone over the next 6 months. He would like to lower his dose to 12mg daily in 2 weeks. depression This is a follow up visit. The date of the initial visit for this episode was 02/21/2013. Related symptoms are well controlled. The patient does not present with depressed mood, difficulty concentrating, difficulty falling asleep, difficulty staying asleep, diminished interest or pleasure, excessive worry, loss of appetite, paranoia, poor judgment, racing thoughts, restlessness or thoughts of or suicide. The depression is aggravated by conflict or stress. The patient denies any chronic pain, headache, irritability, nausea, sweating, trembling, urinary frequency, vomiting and weight gain. Additional information: Depression is well controlled with low dose of celexa.. depression This is a follow up visit. The date of the initial visit for this episode was 02/21/2013. Related symptoms are well controlled. The patient does not present with depressed mood, difficulty concentrating, difficulty falling asleep, diminished interest or pleasure, excessive worry, hallucinations, paranoia, racing thoughts, restlessness or thoughts of or suicide. The depression is aggravated by conflict or stress. The depression is associated with chronic pain. The patient denies any headache, irritability, nausea, sweating, trembling, urinary frequency, vomiting and weight gain. Additional information: He was followed by a psychiatrist (Dr. Clark) at [place] for tx of depression. He has been on Celexa for over a year and has found this very helpful for his depression and anxiety symptoms. One prior psych admission in [place] for depression after he cut himself.. depression This is an initi al visit. The patient presents with depressed mood. The patient's risk factors include drug abuse. The patient denies any aggravating factors. Interventions the patient has tried have not provided any relief. substance abuse The symptoms are reported as being mild. Mr Lim is on the [employer] program on Suboxone Med refill Former PCP: Aurea Manriquez. Last medical visit: 6 months ago. Was also followed by mental health (clinician and Psych) at [place] as well. Plans to transfer care to [facility] due to recent move. Increased BP noted. No BP meds x 3 weeks. Med refill (comments) +h/o Hep C --no meds due to depression. 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 Uses prednisone for flares. Is currently without symptoms. Functional Status Date Functional Assessmen t No Information Instructions Date Instruction Additional Infor bel Related to Opioi d type dependence, unspecified use Assessments Type Assessment Date assessment ALCOHOL DEPENDENCE assessment Opioid type dependence, in remis taina Patient Care Teams Name Effective Dates (start - stop) Status Members No Information
--- OUTSIDE RECORDS SUMMARY | 2024-02-11 09:00 | XMS_ITS ---
Author Organization [facility] Address [address] [place] [address] Care Team Providers Care Patrol Captain Name Role Phone [employer] - DO NOT USE, Mail Pickup Primary Care Provider Unavailable Gita Kwong Unavailable Encounters Encounter Location Date Provider Diagnosis [facility] [address] [place] [address] [phone] 02/11/2024 Gita Kwong Plan Of Treatment No Information Progress Notes * Oswaldo LIMoDOB: 5 (59 yo M)Acc No.[id number]:02/11/2024 Case Management Patient: Juan Luis CapellanADRIANA Ferny Provider: Marcia Kwong :1965 A ge:58 Y S ex:Male Date:02/11/2024 Address:[address], [place], [id number] Pcp:Mail Pickup [employer] - DO NOT USE Subjective: * Chief Complaints: * * Medical History: Objective: Assessment: Plan: * Treatment: * Images: Billing Information: * Visit Code: * Procedure Codes: Care Plan Details* * Electronic signature of Koko Kwong on 03/06/2025 at 09:59 AM EDT Sign off status: Pending * Provider: Marcia Kwong Date: 02/11/2024 Generated for Amelie hassan/Joyce/Brennen on: 03/06/2025 09:59 AM EDT
--- NOTE | 2025-03-06 09:34 | MHC.OFFVIS ---
Intake Visit Reasons: follow up Intake Note: Patient presents for Allergies No Known Allergies Allergy (Verified 10/27/24 10:39) [facility] Medical History (System 10/06/24 @ 14:04 by Martha Harry) Recurrent aphthous stomatitis Costochondritis Behcets syndrome Hepatitis B antibody positive Surgical History (Updated 10/27/24 @ 10:44 by LATOYA Murray) History of cholecystectomy Family History (Updated 10/27/24 @ 10:45 by LATOYA Murray) Father Diabetes Mother Hypertension Social History (Updated 10/27/24 @ 10:47 by LATOYA Murray) Household Members: None Housing: Other Alcohol intake: former Patient Tobacco Use Status: Current someday Tobacco user Tobacco use type: Cigarette Cigarettes Per Day: 2 Years Smoked: 2 Coding
--- NOTE | 2025-03-06 09:36 | A.OFFVIS_ITS ---
Vital Signs 03/06/25 09:42 Height 5 ft 9 in Weight 184 lb 4.903 oz BMI 27.2 BP 118/80 Blood Pressure Location Lt brachial Position Sitting Pulse 55 Pulse Source Pulse Oximeter Pulse Oximetry (%) 97 Oxygen Delivery Method Room Air Intake Visit Reasons: follow up Intake Note: Patient presents for DELL follow up. 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 - On colchicine 0.3mg daily - Tolerating the colchicine and has been doing well - Improved ulcers - Currently undergoing treatment for his Hep C - Increase colchicine 0.6mg daily Today - On colchicine 0.6mg daily - Tolerating the colchicine and has been doing well - Improved ulcers - Finished Hep C treatment. Last viral load negative Rheumatologic History: Presented to Rheumatology carrying a diagnosis of Behcet's. HLA B 51 was ne gative and there was no other finding to cooperate a diagnosis of Behcet's disease. But given his recurrent aphthous stomatitis he was given colchicine 0.6 mg daily Initial history: Patient states that he 1st starting ulcers as a child. These ulcers would be recurrent only involving his mouth. Areas affected include his lips, tongue, cheek, and even esophagus. While he had these ulcers he recalls having fevers. He denies ever having scrotal ulcers. Eye inflammation, vascular lesions such as phlebitis, aneurysms or thrombosis, skin lesions such as erythema nodosum or pyoderma gangrenosum like lesions. Does note that he gets a reaction when he gets blood drawn but is unable to typify this reaction. States that he got prednisone for a year and a half and this significantly improved his ulcers. No family history of any autoimmune disease. Current Rheumatology Medication(s): Colchicine 0.6mg daily PFSH Medical History (System 04/11/25 @ 14:04 by Martha Harry) Recurrent aphthous stomatitis Costochondritis Behcets syndrome Hepatitis B antibody positive Surgical History History of cholecystectomy Family History Father Diabetes Mother Hypertension Social History Household Members: None Housing: Other Alcohol intake: former Patient Tobacco Use Status: Current someday Tobacco user Tobacco use type: Cigarette Cigarettes Per Day: 2 Years Smoked: 2 Review of Systems Const Details: Review of Systems Constitutional: Denies fever, chills, weight loss ENT: Denies vision changes, eye pain or eye redness, dental caries, dry mouth GI: Denies nausea, vomiting, diarrhea, abdominal pain, change in BM Pulm: Denies SOB, ASENCIO, hemoptysis, wheezing Cards: Denies chest pain, palpitations Skin: Denies Raynaud's, rash, nail changes, photosensitivity, TOOL AND CUTTER GRINDER: Denies headaches, weakness, paresthesias, recurrent falls MSK: as per HPI All other systems reviewed and are unremarkable except noted above Physical Exam Exam Exam: Vital signs reviewed Physical Examination CONSTITUITIONAL Patient alert and cooperative. Well appearing and in no apparent painful distress HEENT Conjunctiva and sclera clear. No lymphadenopathy. No oral or nasal ulcers MSK Hands * Right Hand: Able to make a fist. No swelling or tenderness to palpation of the MCPs, PIPs or DIPs. * Left Hand: Able to make a fist. No swelling or tenderness to palpation of the MCPs, PIPs or DIPs. * Herbedens nodes noted bilaterally Wrists * Right Wrist: Full ROM to flexion and extension. No swelling or TTP * Left Wrist: Full ROM to flexion and extension. No swelling or TTP Elbows * Right Elbow: Full ROM. No swelling or TTP. No TTP of the medial epicondyle. No TTP of the lateral epicondyle * Left Elbow: Full ROM. No swelling or TTP. No TTP of the medial epicondyle. No TTP of the lateral epicondyle Shoulders * Right shoulder: Full ROM. No swelling noted. No TTP of the AC joint. No TTP of the subacromial bursa. No TTP of the posterior shoulder * Left shoulder: Full ROM. No swelling noted. No TTP of the AC joint. No TTP of the subacromial bursa. No TTP of the posterior shoulder Knees * Right knee: Full ROM. No swelling noted. No TTP of the knee joint line. No TTP of pes anserine bursa * Left knee: Full ROM. No swelling noted. No TTP of the knee joint line. No TTP of pes anserine bursa. * Crepitations felt bilaterally Ankles * Right ankle: Good ankle dorsiflexion and plantar flexion. No swelling. No TTP of the ankle joint * Left ankle: Good ankle dorsiflexion and plantar flexion. No swelling. No TTP of the ankle joint Feet * Right foot: Negative squeeze test * Left foot: Negative squeeze test Tender points? * No tenderness to palpation of the bilateral trapezius, supraspinatus, anterior costochondral junctions, bilateral suboccipital muscle insertions SKIN No rashes Vital Signs: Last Vital Signs Pulse 55 03/06/25 09:42 BP 118/80 03/06/25 09:42 Pulse Ox 97 03/06/25 09:42 Oxygen Delivery Method Room Air 03/06/25 09:42 BMI result Body Mass Index 27.2 Results Reviewed Results Reviewed: Laboratory Tests 04/14/24 10/27/24 09:28 11:40 WBC 5.5 RBC 4.48 L Hgb 13.0 L Hct 39.0 L Plt Count 210 ESR 39 H 65 H Sodium 142 Potassium 4.2 Chloride 103 Carbon Dioxide 32 H BUN 11 Creatinine 0.68 AST 51 H ALT 69 H C-Reactive Protein 1.35 H Assessment & Plan Assessment & Plan (1) Recurrent aphthous stomatitis: Code(s): K12.0 - Recurrent oral aphthae Category: Medical Plan: #Recurrent aphthous stomatitis Patient with recurrent aphthous stomatitis. At this time unsure whether he has a true diagnosis of Behcet's disease. 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 Benefits include reduced occurrence of flares while we titrate and regulate his uric acid on allopurinol and other uric acid lowering medications. ? 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 - Other ferry terminal supervisor (current) drug therapy Comprehensive Met. Panel Today Z. - Other [facility] (current) drug therapy Comprehensive Met. Panel 6 Months Z. - Other [facility]ci (current) drug therapy C Reactive Protein 6 Months Z79. - Other [facility] (current) drug therapy Complete Blood Count Auto Diff Today Z79. 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
[2025-03-06 09:42] VITALS: BP 118/80; PULSE 55; O2SAT 97; BMI 27.2
--- OUTSIDE RECORDS SUMMARY | 2025-03-06 09:59 | XMS_ITS | Encounter Summary ---
Author Organization [employer] Address [address] [facility] 7 [place] [address] Care Team Providers Care Service Tester Name Role Phone Vic Benoit MD Primary Care Prov ider Reason for Visit * Reason Onset Date Comments Nurse Triage 02/16/2025 Encounter Details Date Type Department Care Team ([facility] st Contact Info) Description 02/16/2025 Telephone [facility] [address] [place] [address] Vic Benoit MD [address] [place] [address] Nurse Triage Social History Tobacco Use Types [...] encounter Miscellaneous Notes * Telephone Encounter - Guzmanshelia Robertson - 02/16/2025 11:35 AM EDT Symptoms: Lethargic (Tired), Chest Congestion Outcome: Schedule an appointment to be seen within 24 hours Reason: Caller denied all higher acuity questions Please contact pt at [phone]. (Barbadian Speaker) documented in this encounter Plan of Treatment Upcoming Encounters Date Type Department Care Team (Late st Contact Info) Description 03/26/2025 9:30 AM EDT Telemedicine [facility] [address] [place] [address] Vic Benoit MD [address] [place] [address] documented as of this encounter Visit Diagnoses Not on filedocumented in this encounter Additional Health Concerns Assessment Noted Time PHQ-9 Depression Total Score: 0 09/28/19 25 9:13 AM EDT documented as of this encounter Care Teams Service Tester Relationship Specialty Start Date End Date Vic Benoit MD [address] [place] [address] PCP - General Internal Medicine 11/21/19 documented as of this encounter
--- OUTSIDE RECORDS SUMMARY | 2025-03-06 09:59 | XMS_ITS | Encounter Summary ---
Author Organization [employer] Address [address] [place] [address] [address] [place] [address] Care Team Providers Care Steel Turner Name Role Phone Vic Benoit MD Primary Care Prov ider Reason for Visit * Reason Onset Date Comments Lab Orders 12/06/2024 Encounter Details Date Type Department Care Team ([facility] st Contact Info) Description 12/06/2024 Telephone [facility] [address] [place] [address] Vic Benoit MD [address] [place] [address] Lab Orders Social History Tobacco Use Types Packs/Day Years [...] encounter Miscellaneous Notes * Telephone Encounter - Margarette Resendiz RN - 12/06/2024 10:10 AM EDT TC to pt. Pt stated has an appointment in a couple of weeks and stated provider had mentioned checking his iron levels before the visit, and pt requesting testosterone levels be checked as well. Author advised will ask provider about labs to order so pt can complete them. Pt verbalized understanding and agreement with plan. * Telephone Encounter - Keshawn Leonard - 12/06/2024 8:29 AM EDT Tc from pt requesting a order of labs for t-levels. Pt requesting call back Contact pt at [phone] documented in this encounter Plan of Treatment Upcoming Encounters Date Type Department Care Team ([facility] st Contact Info) Description 03/26/2025 9:30 AM EDT Telemedicine [facility] [address] [place], [place] [phone] Vic Benoit MD [address] [place], [place] [phone] documented as of this encounter Visit Diagnoses Not on filedocumented in this encounter Additional Health Concerns Assessment Noted Time PHQ-9 Depression Total Score: 0 09/28/19 25 9:13 AM EDT documented as of this encounter Care Teams Steel Turner Relationship Specialty Start Date End Date Vic Benoit MD [address] [place] [phone] PCP - General Internal Medicine 11/21/19 documented as of this encounter
--- OUTSIDE RECORDS SUMMARY | 2025-03-06 09:59 | XMS_ITS | Clinical Summary ---
Author Organization [employer] Address [address] [place] [address] 7[address] [place] [address] Care Team Providers Care Take Up Supervisor Name Role Phone Vic Benoit MD Primary Care Prov ider Allergies No known active allergies Medications methadone (Dolophine) 5 MG/5ML solution Take 125 mL by mouth in the morning. [facility] Active cloNIDine (Catapres) 0.1 MG tablet Take [...] Once per day. 90 tablet 3 5 12/22/19 26 Active ferrous gluconate (Fergon) 324 (38 Fe) MG tablet Take 1 tablet (324 mg) by mouth with breakfast. 30 tablet 11 5 01/09/20 26 Active senna-docusate sodium (Senokot-S) 8.6-50 MG tabletIndications :Constipation, unspecified constipation type Take 1 tablet by mouth Once per day. 90 tablet 3 5 Active Active Problems Problem Noted Date Diagnosed [...] Encounters Date Type Department Care Team Description 02/16/[address] [address] Vic Benoit MD Nurse Triage 01/23/2025 9:05 AM EDT Telemedicine [address] [address] Gladis Bhagat MD Chronic hepatitis C virus genotype 3 infection (CMS/HCC) (Primary Dx); Hepatitis C virus infection cured after antiviral drug therapy 01/23/2025 Travel 01/19/[address] [address] Azra SheriffKyaAraceli 01/15/2025 Results Follow-Up [address] [address] Gladis Bhagat MD Hepatitis C Antibody with Reflex to HCV, RNA, Quantitative, Real-Time PCR, Hepatitis C Viral RNA, Quantitative, Real-Time PCR 01/10/2025 Orders Only [address] [address] Gladis Bhagat MD 01/08/2025 Results Follow-Up [facility] [address] [place] [address] Vic Benoit MD Vitamin B12 (Cobalamin) and Folate Panel, Serum, Iron And Total Iron Binding Capacity, Lipid Panel, Standard, Testosterone, Free (Dialysis) And Total, MS 12/22/2024 Orders Only [facility] [address] [place] [address] ProviderShani MD 12/21/2024 10:15 AM EDT Telemedicine [facility] [address] [place] [address] Vic Benoit MD Low libido (Primary Dx); Primary hypertension 12/21/2024 Travel 12/20/2024 Telephone [facility] [address] [place], [place] [phone] Vic Benoit MD chart prep 12/18/2024 Orders Only [facility] [address] [place] [address] Yanna Leahy, SONI Hepatitis C antibody positive in blood (Primary Dx) 12/06/2024 Telephone [facility] [address] [place], [place] [phone] Vic Benoit MD Lab Orders from Last [...] Info) Description 03/26/2025 9:30 AM EDT Telemedicine [facility] [address] [place] [address] Vic Benoit MD [address] [place] [address] Health Maintenance Due Date Last Done Comments [...] FOBT 11/10/2023 11/09/2022 COVID-19 Vaccine (3 - 2024-2 6 season) 2025 10/14/2021, 11/08/2020 Influenza Vaccine (#1) 2025 7, [...] Procedure Name Priority Date/Time Associated Diagnosis Comments TESTOSTERONE, FREE (DIALYSIS) AND TOTAL,MS Routine 02/02/2025 8:17 AM EDT Low libido HEPATITIS C VIRAL RNA, QUANTITATIVE, REAL-TIME PCR [...] Relevant to Health Maintenance Results * (ABNORMAL) Testosterone, Free (Dialysis) And Total, MS (02/02/2025 8:17 AM EDT) Only the most recent of2 resultswithin the time period is included. Testosterone, Total 184(A) 250 - 1100 ng/dL [facility] Comment:For additional infor bel, please refer tohttp://education.Keego/faq/BquklNbrdpobojcvdCNREKLMNJ596(This link is being provided for informational/educational purposes only.)This test was developed and its analytical performancecharacteristics have been determined by [employer] [facility] [place], [place]. It hasnot been cleared or approved by the U.S. Food and DrugAdministration. This assay has been validated pursuantto the CLIA regulations and is used for clinicalpurposes. Testosterone, Free 14.2(A) 35.0 - 155.0 pg/mL [facility] Comment:This test was develo ped and its analytical performancecharacteristics have been determined by [facility] [facility] [facility] [place], [place]. It hasnot been cleared or approved by the U.S. Food and DrugAdministration. This assay has been validated pursuantto the CLIA regulations and is used for clinicalpurposes.THIS TEST WAS PERFORMED AT[facility] [place] [address]ZKUVDAKBUCK LUCERO MD,PHD Blood Venous blood specimen / Unknown 02/02/2025 8:17 AM EDT 02/02/2025 2:55 PM EDT Vic Bradley MD LAB BLOOD ORDERABL ES Final Result [facility] [address] [place] [phone] * Hepatitis C Viral RNA, Quantitative, Real-Time PCR (01/10/2025 10:28 AM EDT) Hepatitis C Viral Load <15 NOT DETECTED NOT DETECTED IU/mL [facility] HCV Log PCR <1.18 NOT DETECTED NOT DETECTED Log IU/mL [facility] Comment:For additional infor bel, please refer tohttp://education.Keego/faq/YRG98g7(This link is being provided for informational/educational purposes only.)THIS TEST WAS PERFORMED AT:[facility] [address] [id number] ODEN MD 01/10/2025 10:2 8 AM EDT 01/11/2025 2:26 PM EDT Gladis Bhagat MD LAB BLOOD ORDERABLES Final R esult Performing Organization Address [facility] Co de Phone Number [facility] [address] [place] [phone] * (ABNORMAL) Hepatitis C Antibody with Reflex to HCV, RNA, Quantitative, Real- Time PCR (01/10/2025 10:28 AM EDT) Hepatitis C Antibody Reactive( A) Nonreactive [facility] Comment:Presumptive evidence of antibodies to HCV. 01/10/2025 10:2 8 AM EDT 01/10/2025 2:46 PM EDT us Gladis Bhagat MD LAB BLOOD ORDERABLES Final R esult Performing Organization Address [facility] Co de Phone Number [facility] [address] [place] [phone] * Vitamin B12 (Cobalamin) and Folate Panel, Serum (01/08/2025 8:29 AM EDT) Vitamin B12 309 200 - 900 pg/mL [facility] Comment:NORMAL 200-900 PG/ML INDETERMINATE 160-199 PG/ML DEFICIENT < 160 PG/ML Folate 6.6 > or = 4.0 ng/mL [facility] Comment:Reference Values:> o r = 4.0 [...] ORDERABL ES Final Result Performing Organization Address [facility] Co de Phone Number [facility] [address] [place] [phone] * (ABNORMAL) Iron And Total Iron Binding Capacity (01/08/2025 8:29 AM EDT) Iron 33(L) 45 - 160 mcg/dL [facility] Total Iron Binding Capacity 230 228 - 428 mcg/dL [facility] Percent Iron Saturation 14(L) 15 - 50 % [facility] Unsaturated Iron Binding 197 ug/dL [facility] Blood Venous blood specimen / Unknown 01/08/2025 8:29 AM EDT 01/08/2025 3:28 PM EDT us Vic Bradley MD LAB BLOOD ORDERABL ES Final Result [facility] [address] [place] [phone] * Lipid Panel, Standard (01/08/2025 8:29 AM EDT) Triglycerides 55 <150 mg/dL [facility] Comment:Desirable Triglyceri de: less than 150 mg/dLBorderline High Triglyceride 150-199 mg/dLHigh Triglyceride: 200-499 mg/dLVery High Triglyceride: greater than or equal to 5OO mg/dL Cholesterol 111 <200 mg/dL [facility] Comment:Desirable Cholestero l: less than 200 mg/dLBorderline High Cholesterol: 200-239 mg/dLHigh Cholesterol: greater than 239 mg/dL LDL Cholesterol Calculated 57 <100 mg/dL [facility] Comment:Desirable LDL: less than 100 mg/dLNear Optimal/Above Optimal LDL: 110- 129 mg/dLBorderline High LDL: 130-159 mg/dLHigh LDL: 160-189 mg/dLVery High LDL: greater than or equal to 190 mg/dL HDL Cholesterol 43 >40 mg/dL [facility] Comment:Desirable HDL: great er than 40 mg/dL Note: This HDL assay may give artificially low results in patients with liver disease. Blood Venous blood specimen / Unknown 01/08/2025 8:29 AM EDT 01/08/2025 3:28 PM EDT Vic Bradley MD LAB BLOOD ORDERABL ES Final Result Performing Organization Address [facility] Co de Phone Number [facility] [address] [place] [phone] * HIV-1/2 Antigen and Antibodies, Fourth Generation, with Reflexes (04/14/2024 9:28 AM EDT) HIV AB/AG Nonreactive Nonreactive [facility] Comment:HIV-1 p24 Ag and/or HIV-1/HIV-2 Ab not detected.A test result that is nonreactive does not exclude thepossibility of exposure to or infection with HIV-1 and/orHIV-2. Nonreactive results in this assay for individualswith prior exposure to HIV-1 and/or HIV-2 may be due toantigen and antibody levels that are below the limit ofdetection of this assay.The Evirx HIV Ag/Ab Combo assay result andsupplemental assay results should be interpreted inconjunction with the patient's clinical presentation,history and other laboratory results. If the results areinconsistent with clinical evidence, additional testing issuggested to confirm the result. 04/14/2024 9:28 AM EDT 04/14/2024 9:38 AM EDT Vic Bradley MD LAB BLOOD ORDERABL ES Final Result Performing Organization Address [facility] Co de Phone Number [facility] [address] [place] [phone] * FIT DNA/Cologuard Cancer Screening (11/09/2022 1:46 PM EDT) Stool Shani Hoyt MD HEALTH MAINTENANCE Final Result from Last 3 Months or Most Recently Relevant to Health Maintenance Insurance C3 Care Teams Take Up Supervisor Relationship Specialty Start Date End Date Vic Benoit MD [address] [place] [phone] PCP - General Internal Medicine 11/21/19
--- OUTSIDE RECORDS SUMMARY | 2025-03-06 09:59 | XMS_ITS | Encounter Summary ---
Author Organization [employer] Address [address] [facility] [address] [place] [address] Care Team Providers Care River Rat Name Role Phone Vic Benoit MD Primary Care Prov ider Encounter Details Date Type Department Care Team ([facility] st Contact Info) Description 12/22/[address] [facility] [address] [place], [place] [phone] ProviderShani MD Social History Tobacco Use Types Packs/Day Years [...] 03/26/2025 9:30 AM EDT Telemedicine [facility] [address] [place], [place] [phone] Vic Benoit MD [address] [place] [address] documented as of this encounter Procedures Procedure Name Priority Date/Time Associated Diagnosis Comments HM FIT DNA/COLOGUARD CANCER SCREENING Routine 11/09/2022 1:46 PM EDT documented in this encounter Results * FIT DNA/Cologuard Cancer Screening (11/09/2022 1:46 PM EDT) Stool us Historical Provider HEALTH MAINTENANCE Final Result documented in this encounter Visit Diagnoses Not on filedocumented in this encounter Additional Health Concerns Assessment Noted Time PHQ-9 Depression Total Score: 0 09/28/19 25 9:13 AM EDT documented as of this encounter Care Teams River Rat Relationship Specialty Start Date End Date Vic Benoit MD [address] [place], [place] [phone] PCP - General Internal Medicine 11/21/19 documented as of this encounter
--- OUTSIDE RECORDS SUMMARY | 2025-03-06 09:59 | XMS_ITS | Encounter Summary ---
Author Organization [employer] Address [address] [facility] [address] [place] [address] Care Team Providers Care Flight Line Service Attendant Name Role Phone Vic Benoit MD Primary Care Prov ider Reason for Visit * Reason Onset Date Comments Nurse Triage 10/18/2023 Encounter Details Date Type Department Care Team ([facility] st Contact Info) Description 10/18/2023 Telephone [facility] [address] [place] [address] Vic Benoit MD [address] [place] [address] Nurse Triage Social History Tobacco Use Types Packs/Day Years Used Date Smoking Tobacco: Some Days Cigarettes Passive Smoke Exposure: Current Smokeless Tobacco: Never Depression Answer Date Recorded Patient Health Questionnaire-9 Score 0 10/13/2022 Housing Stability Answer Date Recorded What is your housing situation today? I do not have housing (Staying with others, in a hotel, in a intermediate, living outside on the street, on a [...] Info) Description 03/26/2025 9:30 AM EDT Telemedicine [facility] [address] [place] [address] Vic Benoit MD [address] [place] [address] documented as of this encounter Visit Diagnoses Not on filedocumented in this encounter Additional Health Concerns Assessment Noted Time PHQ-9 Depression Total Score: 0 10/14/19 23 10:24 AM EDT documented as of this encounter Care Teams Flight Line Service Attendant Relationship Specialty Start Date End Date Vic Benoit MD [address] [place] [address] PCP - General Internal Medicine 11/21/19 documented as of this encounter
--- OUTSIDE RECORDS SUMMARY | 2025-03-06 09:59 | XMS_ITS | Patient Health Record ---
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
== END 2025-03-06 10:15 | disposition home or self-care (01) ==
LOC: HO.RHES 08:51
PROVIDERS: PCP Internal Medicine; Visit Provider Student in an Organized Health Care Education/Training Program
DX: K12.0 Recurrent oral aphthae (principal); Z79.899 Other long term (current) drug therapy
CPT/HCPCS: 99214